=== PATIENT | female | born 1960 | race Caucasian/White ===

== ENCOUNTER 2017-03-28 13:25 | Emergency (ER) | payer MEDICAID ==
[~2017-03-28] VITALS: Ht 165.1 cm; Wt 69.9 kg
[~2017-03-28 13:25] MED LIST: ASP325TEC PO; CARI250T PO; CEFU500T5 PO; CPR500T; CPR500T PO; CRS350T PO; DIAZ10TA; DIAZ10TA3; DIAZ10TA3 PO; HYDR-757 PO; HYDR1CAP PO; HYDR1CAP2; HYDR1CAP2 PO; NAPR-243 PO; ONDN4T PO; OXYC-12 PO; SULF1TAB35 PO; TRM50T; TRM50T PO
[2017-03-28] MEDS ORDERED: ONDANSETRON 4 MG/2 ML (SDV) Z0FRAN IVP ONE (15:30)
--- NOTE | 2017-03-28 15:30 | ED Integumentary General ---
General Chief Complaint: Skin/Wound Problems Stated Complaint: SPIDER BITE RT BUTTOCKS Nursing Triage Note: Pt has wound to R buttock that she thinks may be a spider bite. Pt states she first noticed wound on Saturday (03/23). Pt also c/o nausea that started yesterday. Source: patient, family (son) Exam Limitations: no limitations History of Present Illness Time seen by provider: 15:28 Initial Comments Patient presents to ER with chief complaint of a wound on the back of her right leg just below her buttock. She says been there since Saturday or Saturday which is approximately 5-6 days. She is having some subjective fevers, chills, nausea and a bit of pain from the site. She has not sought help yet for this nor she been on antibiotic last 4-6 weeks. She does not have a history of hidradenitis separative up. She denies laying on that side for a prolonged period of time. She is ambulatory. She's never had a wound here before. Patient is in a pain contract with her primary care physician for hydrocodone for her chronic back pain. She denies any other controlled substance use. Allergies and Home Medications Allergies Coded Allergies: propoxyphene (Unverified Allergy, Mild, 11/17/09) adhesive (Unverified Allergy, Unknown, RASH, 03/28/17) Iodinated Contrast- Oral and IV Dye (Verified Adverse Reaction, Intermediate, NAUSEA, 05/16/13) SEVERE VOMITTING Home Medications Alprazolam 1 Mg Tablet, (Reported) Aspirin 325 Mg Tabec, 325 MG PO DAILY, (Reported) Citalopram Hydrobromide 10 Mg Tablet, (Reported) Fluticasone/Salmeterol 1 Each Blst.w.dev, (Reported) Hydrocodone/Acetaminophen 1 Each Tablet, (Reported) Lisinopril 20 Mg Tablet, (Reported) Omeprazole 20 Mg Capsule., (Reported) Ondansetron 4 Mg Tab.rapdis, 4 MG PO Q6H PRN for NAUSEA/VOMITING-1ST LINE, #20 Ref 0 Prescribed by: FABIAN SNIDER on 03/28/17 1622 Oxycodone Hcl/Acetaminophen 1 Each Tablet, 1 EACH PO Q4-6H PRN, #50 Ref 0 ( Reported) Ranitidine HCl 150 Mg Tablet, (Reported) Tiotropium [place] 1 Inh Aerp, (Reported) Constitutional: No chills, No diaphoresis, No fever, malaise EENTM: No ear discharge, No ear pain Respiratory: No cough, No short of breath Cardiovascular: No chest pain, No syncope, No vascular heart diseas Gastrointestinal: No constipation, No diarrhea, No nausea Genitourinary: No discharge, No dysuria : No Musculoskeletal: back pain (Chronic), No joint pain, No joint swelling Skin: see HPI Psychiatric/Neurological: Denies Headache, Denies Numbness, Denies Paresthesia Past Ioswszt-Slrlyw-Qgibym Hx Patient Social History Recent Foreign Travel: No Contact w/Someone Who Travel: No Recent Infectious Disease Expo: No Immunizations Up To Date Tetanus Booster (TDap): Unknown Date of Pneumonia Vaccine: Jul 22, 2008 Seasonal Allergies Seasonal Allergies: Yes ("SINUS PROBLEMS") Respiratory Respiratory Disorders: COPD Reproductive System Hx Reproductive Disorders: No Sexually Transmitted Disease: No HIV/AIDS: No TRAINER History: 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 Genitourinary Genitourinary Disorders: Kidney Infection, Kidney Stones Gastrointestinal Gastrointestinal Disorders: Gastroesophageal Reflux, Ulcer Musculoskeletal Musculoskeletal Disorders: Arthritis HEENT HEENT Disorders: Cataract Loss of Vision: Denies Hearing Impairment: Denies Psychosocial Behavioral Health Disorders: Sleep Difficulties, Anxiety, Depression Blood Transfusions Adverse Reaction to a Blood Tr: No Family Medical History Significant Family History: No Pertinent Family Hx Family Medial History: Cancer 03 MOTHER (SPINAL AND KIDNEY) Cataract 03 MOTHER Congestive heart failure 03 FATHER Family history: Gastrointestinal disease 09 BROTHER Family history: Hypertension 03 FATHER 03 MOTHER 09 BROTHER Myocardial infarction 03 FATHER 09 BROTHER Parkinson's disease 03 MOTHER Stroke 03 MOTHER 09 BROTHER (TIA) 09 SISTER (TIA) Physical Exam Vital Signs Vital Sign - Last 12Hours 03/28/17 13:55 Temp 98.7 Pulse 89 Resp 18 B/P (MAP) 96/59 Pulse Ox 96 O2 Delivery Room Air Capillary Refill : Less Than 3 Seconds General Appearance: moderate distress, thin Cardiovascular: normal peripheral pulses, regular rate, rhythm, no edema Respiratory: lungs clear, normal breath sounds Back: normal inspection, no vertebral tenderness Extremities: non-tender, no pedal edema, normal capillary refill Neurologic/Psychiatric: alert, oriented x 3 Skin: normal color, warm/dry, other (2.5 cm diameter round eschar covering a mildly reddened base without any significant induration beyond the borders of the eschar over the issue tuberosity right side.) Lymphatic: no adenopathy Progress/Results/Core Measures Results/Orders Lab Results Laboratory Tests Test 03/28/17 14:33 Range/Units White Blood Count 8.5 4.3-11.0 10^3/uL Red Blood Count 3.68 L 4.35-5.85 10^6/uL Hemoglobin 12.1 11.5-16.0 G/DL Hematocrit 34 L 35-52 % Mean Corpuscular Volume 93 80-99 FL Mean Corpuscular Hemoglobin 33 25-34 PG Mean Corpuscular Hemoglobin Concent 35 32-36 G/DL Red Cell Distribution Width 11.9 10.0-14.5 % Platelet Count 238 130-400 10^3/uL Mean Platelet Volume 11.0 H 7.4-10.4 FL Neutrophils (%) (Auto) 66 42-75 % Lymphocytes (%) (Auto) 26 12-44 % Monocytes (%) (Auto) 7 0-12 % Eosinophils (%) (Auto) 1 0-10 % Basophils (%) (Auto) 0 0-10 % Neutrophils # (Auto) 5.6 1.8-7.8 X 10^3 Lymphocytes # (Auto) 2.2 1.0-4.0 X 10^3 Monocytes # (Auto) 0.6 0.0-1.0 X 10^3 Eosinophils # (Auto) 0.1 0.0-0.3 10^3/uL Basophils # (Auto) 0.0 0.0-0.1 10^3/uL Sodium Level 137 135-145 MMOL/L Potassium Level 3.6 3.6-5.0 MMOL/L Chloride Level 103 98-107 MMOL/L Carbon Dioxide Level 23 21-32 MMOL/L Anion Gap 11 5-14 MMOL/L Blood Urea Nitrogen 15 7-18 MG/DL Creatinine 1.08 0.60-1.30 MG/DL Estimat Glomerular Filtration Rate 53 BUN/Creatinine Ratio 14 Glucose Level 109 H 70-105 MG/DL Calcium Level 9.0 8.5-10.1 MG/DL Total Bilirubin 1.7 H 0.1-1.0 MG/DL Aspartate Amino Transf (AST/SGOT) 32 5-34 U/L Alanine Aminotransferase (ALT/SGPT) 17 0-55 U/L Alkaline Phosphatase 98 40-136 U/L Total Protein 6.6 6.4-8.2 GM/DL Albumin 4.0 3.2-4.5 GM/DL My Orders Orders - FABIAN SNIDER Cbc With Automated Diff (03/28/17 15:27) Comprehensive Metabolic Panel (03/28/17 15:27) Ondansetron Injection (Zofran Injectio (03/28/17 15:30) Ondansetron Oral Dissolve Tab (Zofran (03/28/17 16:15) Rx-Ondansetron Po (Rx-Zofran Po) (03/28/17 16:27) Rx-Ondansetron Po (Rx-Zofran Po) (03/28/17 16:22) Medications Given in ED Current Medications Medications Dose Ordered Sig/Justino Route Start Time Stop Time Status Last Admin Dose Admin Ondansetron HCl 4 mg ONCE ONCE PO 03/28/17 16:15 03/28/17 16:16 DC 03/28/17 16:09 4 MG Vital Signs/I&O Vital Sign - Last 12Hours 03/28/17 13:55 Temp 98.7 Pulse 89 Resp 18 B/P (MAP) 96/59 Pulse Ox 96 O2 Delivery Room Air Blood Pressure Mean: 71 Consults Consults : Consulting Physician: JENNIFER KINCAID MD Consults Notes Discussed the case and he agrees with this can be [facility] outpatient and would be happy to see it in the clinic afternoon Saturday. He asked that we call the clinic get this scheduled for her. Departure Impression Impression: Primary Impression: Pressure ulcer Qualified Codes: L89.310 - Pressure ulcer of right buttock, unstageable Disposition: 01 HOME, SELF-CARE Condition: Stable Departure-Patient Inst. Decision time for Depature: 16:19 Referrals: KIRILL MUSE DO (PCP/Family) Primary Care Physician Patient Instructions: Pressure Sores (DC) Add. Discharge Instructions: Keep the wound clean and use soap and water. If you have fever or intractable nausea and diarrhea you should return to the ER otherwise pick pack worker the Zofran and take one tablet under the tongue every 6 hours as needed to control your nausea. Plan on following up with the general surgeon, Dr. Kincaid on April 01 at 4 PM. If you need to reschedule for have questions his clinic number is [phone]. All discharge instructions reviewed with patient and/or family. Voiced understanding. Scripts Ondansetron (Zofran Odt) 4 Mg Tab.rapdis 4 MG PO Q6H Y for NAUSEA/VOMITING-1ST LINE, #20 TAB 0 Refills Prov: FABIAN SNIDER 03/28/17 Copy Copies To 1: JENNIFER KINCAID MD, TITUS J Mar 28, 2017 15:30
[2017-03-28 15:39] LABS: BASOPHILS % (AUTO) 0 % (0-10); EOSINOPHILS # (AUTO) 0.1 10^3/uL (0.0-0.3); EOSINOPHILS % (AUTO) 1 % (0-10); LYMPHOCYTES # (AUTO) 2.2 X 10^3 (1.0-4.0); LYMPHOCYTES % (AUTO) 26 % (12-44); MEAN CORPUSCULAR HEMOGLOBIN 33 PG (25-34); MEAN CORPUSCULAR HGB CONC 35 G/DL (32-36); MEAN CORPUSCULAR VOLUME 93 FL (80-99); MONOCYTES # (AUTO) 0.6 X 10^3 (0.0-1.0); MONOCYTES % (AUTO) 7 % (0-12); NEUTROPHILS # (AUTO) 5.6 X 10^3 (1.8-7.8); NEUTROPHILS % (AUTO) 66 % (42-75); PLATELET COUNT 238 10^3/uL (130-400); RED BLOOD COUNT 3.68 10^6/uL (4.35-5.85); RED CELL DISTRIBUTION WIDTH 11.9 % (10.0-14.5); WHITE BLOOD COUNT 8.5 10^3/uL (4.3-11.0)
[2017-03-28 15:51] LABS: BILIRUBIN,TOTAL 1.7 MG/DL (0.1-1.0); CREATININE SERUM 1.08 MG/DL (0.60-1.30); POTASSIUM 3.6 MMOL/L (3.6-5.0); TOTAL PROTEIN 6.6 GM/DL (6.4-8.2)
[2017-03-28] MEDS ORDERED: RANI150T11 (16:14)
[2017-03-28] MEDS ORDERED: LISI-552 (16:14)
[2017-03-28] MEDS ORDERED: FLUT1DIS27 (16:14)
[2017-03-28] MEDS ORDERED: ALPR1TAB7 (16:14)
[2017-03-28] MEDS ORDERED: TIOT18CA2 (16:14)
[2017-03-28] MEDS ORDERED: HYDR-3820 (16:14)
[2017-03-28] MEDS ORDERED: OMEP20CA12 (16:14)
[2017-03-28] MEDS ORDERED: CITA10TA7 (16:14)
[2017-03-28] MEDS ORDERED: ONDANSETRON 4 MG (ZOFRAN) ORAL DISSOLVE TAB PO ONE (16:15)
[2017-03-28] MEDS ORDERED: RX-ONDANSETRON 4 MG ODT (ZOFRAN) PPK #4 ONE (16:22)
[2017-03-28] MEDS ORDERED: ONDA4TAB8 PO (16:22)
[2017-03-28 16:25] VITALS: BP 135/71
[2017-03-28] MEDS ORDERED: RX-ONDANSETRON 4 MG ODT (ZOFRAN) PPK #4 PO STA (16:27)
== END 2017-03-28 16:25 | disposition home or self-care (01) ==
LOC: EDUNIT# 13:25 → ER 13:28
DX: L89.310 Pressure ulcer of right buttock, unstageable (principal); J44.9 Chronic obstructive pulmonary disease, unspecified; K21.9 Gastro-esophageal reflux disease without esophagitis; M19.90 Unspecified osteoarthritis, unspecified site; F41.9 Anxiety disorder, unspecified; F32.9 Major depressive disorder, single episode, unspecified; Z82.49 Family history of ischemic heart disease and other diseases of the circulatory system; Z85.528 Personal history of other malignant neoplasm of kidney; Z79.82 Long term (current) use of aspirin; Z90.710 Acquired absence of both cervix and uterus; Z87.442 Personal history of urinary calculi; Z87.448 Personal history of other diseases of urinary system
CPT/HCPCS: 36415; 80053; 85025; 99282

== ENCOUNTER → 2017-04-05 | Outpatient (CLI) | payer MEDICARE, MEDICAID ==
[~2017-04-05] MED LIST changes: +ALPR1TAB7; +CITA10TA7; +FLUT1DIS27; +HYDR-3820; +LISI-552; +OMEP20CA12; +ONDA4TAB8 PO; +RANI150T11; +TIOT18CA2
== END ==
LOC: WOUNDCARE 08:07
PROVIDERS: ATTEND Surgery
DX: T63.331A Toxic effect of venom of brown recluse spider, accidental (unintentional), initial encounter (principal); L98.492 Non-pressure chronic ulcer of skin of other sites with fat layer exposed; T65.222A Toxic effect of tobacco cigarettes, intentional self-harm, initial encounter
CPT/HCPCS: 99213

== ENCOUNTER → 2017-04-25 | Outpatient (CLI) | payer MEDICARE, MEDICAID | LOC: WOUNDCARE 13:25 | PROVIDERS: ATTEND Surgery | DX: L98.492 Non-pressure chronic ulcer of skin of other sites with fat layer exposed (principal); S51.801A Unspecified open wound of right forearm, initial encounter; T63.331S Toxic effect of venom of brown recluse spider, accidental (unintentional), sequela; L98.491 Non-pressure chronic ulcer of skin of other sites limited to breakdown of skin; T65.222A Toxic effect of tobacco cigarettes, intentional self-harm, initial encounter; B18.9 Chronic viral hepatitis, unspecified | CPT/HCPCS: 11042; 97597 ==

== ENCOUNTER 2019-02-17 10:02 | Emergency (ER) | payer MEDICARE, MEDICAID ==
[~2019-02-17] VITALS: Ht 165.1 cm; Wt 69.9 kg
--- OUTSIDE RECORDS SUMMARY | 2019-02-17 10:09 | XMS REPORT | Continuity of Care Document ---
Author Author [facility] Organization [facility] Address Unknown Phone Unavailable Care Team Providers Care Senior Telecommunications Technician Name Role Phone NO, LOCAL PHYSICIAN PP Unavailable Insurance Providers Payer Name Policy Number Subscriber Name Relationship [facility] [id number] Linh Holt 01 Self / Same As Patient Advance Directives Directive Response Recorded Date Advance Directives N 04/10/13 10:06pm Health Care Power of Reptile Keeper N 04/10/13 10:06pm Organ Donor N 04/10/13 10:06pm Problems No Known Problems or Medical conditions. Family History History Response Recorded Date/Time Hx Family Cancer Y KIDNEY- MOTHER 04/05/10 8:00pm Hx Family Cardiac Disorders Y 04/05/10 8:00pm Hx Family Stroke Y MOTHER 04/05/10 8:00pm Hx Family Hypertension Y PARENTS 04/05/10 8:00pm Hx Family Myocardial Infarction Y FATAL- FATHER 04/05/10 8:00pm Social History History Response Recorded Date/Time Alcohol Use Denies Use 04/10/13 10:06pm Recreational Drug Use N 04/10/13 10:06pm Allergies, Adverse Reactions, Alerts Allergen Type Severity Reaction Last Updated Oxycodone Allergy Mild hives, nausea 01/27/10 Propoxyphene Allergy Mild 11/17/09 Medications Medication Dose Units Route Sig Qty Days Tramadol HCl (Ultram) 50 Mg PO Q4-6HOURS PRN 20 Naproxen (Naprosyn) 1 Each PO TID PRN 20 Acetaminophen/Hydrocodone Bitart (Hydrocodone-Apap 5-500 Cap) 1 Each PO Q6HR PRN Carisoprodol (Soma) 1 Tab PO HS Diazepam 10 Mg PO TID-QID PRN Naproxen (Naprosyn) 1 Each PO TID PRN 20 Trimethoprim/Sulfamethoxazole (Bactrim Ds Tablet) 1 Each PO BID 30 Tramadol HCl (Ultram) 50 Mg PO Q6H PRN 20 Ciprofloxacin (Cipro) 1 Tab PO BID 7 Response Recorded Date/Time Status not known Unknown Results Test Date Result Interp. Ref. Range Acetaminophen Level April 29, 2009 8:17am < 10 UG/ML L 10.0-30.0 Acetaminophen Screen April 29, 2009 9:05am POSITIVE H - Activated Partial Thromboplast Time April 29, 2009 8:17am 36 SEC H 24-35 Alanine Aminotransferase (ALT/SGPT) April 05, 2010 5:10pm 31 U/L N 30-65 Albumin April 05, 2010 5:10pm 3.5 G/DL N 3.4-5.0 Alkaline Phosphatase April 05, 2010 5:10pm 138 U/L H 50-136 Amphetamines Screen February 02, 2006 2:05am Negative - Amylase Level April 05, 2010 5:10pm 41 U/L N 25-115 Anti-Neutrophil Cytoplasmic Ab November 16, 2008 11:04am <1:20 - Aspartate Amino Transf (AST/SGOT) April 05, 2010 5:10pm 13 U/L L 15-37 BUN/Creatinine Ratio April 05, 2010 5:10pm 13 - Band Neutrophils April 30, 2009 6:29am 0 % - Basophils # (Auto) April 05, 2010 5:10pm 0.0 10^3/uL N 0.0-0.1 Basophils % (Manual) April 30, 2009 6:29am 0 % - Basophils (%) (Auto) April 05, 2010 5:10pm 0 % N 0-10 Bleeding Time November 17, 2009 2:15pm 6.0 MIN N 2.5-9.5 Blood Urea Nitrogen April 05, 2010 5:10pm 8 MG/DL N 7-18 Calcium Level April 05, 2010 5:10pm 8.4 MG/DL L 8.5-10.1 Carbon Dioxide Level April 05, 2010 5:10pm 30 MMOL/L N 21-32 Chloride Level April 05, 2010 5:10pm 103 MMOL/L N 101-110 Cocaine Screen February 02, 2006 2:05am Negative - Creatinine April 05, 2010 5:10pm 0.6 MG/DL N 0.6-1.3 Eosinophils # (Auto) April 05, 2010 5:10pm 0.1 10^3/uL N 0.0-0.3 Eosinophils % (Manual) April 30, 2009 6:29am 3 % - Eosinophils (%) (Auto) April 05, 2010 5:10pm 1 % N 0-10 Erythrocyte Sedimentation Rate November 17, 2008 2:45pm 21 MM/HR H 0-20 Gastric Fluid Occult Blood October 12, 2005 3:15pm Neg - Glucose Level April 05, 2010 5:10pm 93 MG/DL N 70-126 Hematocrit April 05, 2010 5:10pm 36 % N 35-52 Hemoglobin April 05, 2010 5:10pm 12.8 G/DL N 11.5-16.0 Lipase November 17, 2008 6:46am 191 U/L N 114-286 Lymphocytes # (Auto) April 05, 2010 5:10pm 3.2 X 10^3 N 1.0-4.0 Lymphocytes % (Manual) April 30, 2009 6:29am 41 % - Lymphocytes (%) (Auto) April 05, 2010 5:10pm 24 % N 12-44 Magnesium Level December 03, 2009 10:12am 2.0 MG/DL N 1.8-2.4 Marijuana (THC) Screen February 02, 2006 2:05am Negative - Mean Corpuscular Hemoglobin April 05, 2010 5:10pm 35 PG H 25-34 Mean Corpuscular Hemoglobin Concent April 05, 2010 5:10pm 36 G/DL N 32-36 Mean Corpuscular Volume April 05, 2010 5:10pm 98 FL N 80-99 Mean Platelet Volume April 05, 2010 5:10pm 9.5 FL N 7.4-10.4 Monocytes # (Auto) April 05, 2010 5:10pm 0.6 X 10^3 N 0.0-1.0 Monocytes % (Manual) April 30, 2009 6:29am 11 % - Monocytes (%) (Auto) April 05, 2010 5:10pm 4 % N 0-12 Myoglobin April 05, 2010 5:10pm 22 UG/L N 10-92 Neutrophils # (Auto) April 05, 2010 5:10pm 9.3 X 10^3 H 1.8-7.8 Neutrophils % (Manual) April 30, 2009 6:29am 38 % - Neutrophils (%) (Auto) April 05, 2010 5:10pm 70 % N 42-75 Opiates Screen February 02, 2006 2:05am Positive - Platelet Count April 05, 2010 5:10pm 223 10^3/uL N 130-400 Potassium Level April 05, 2010 5:10pm 3.5 MMOL/L L 3.6-5.0 Prothromb Time International Ratio December 19, 2009 6:40am 1.1 N 0.8-1.4 Prothrombin Time December 19, 2009 6:40am 14.4 SEC N 12.2-14.7 Reactive Lymphocytes April 30, 2009 6:29am 7 % - Red Blood Count April 05, 2010 5:10pm 3.66 10^6/uL L 4.35-5.85 Red Cell Distribution Width April 05, 2010 5:10pm 13.7 % N 10.0-14.5 Saccharomyces cerevisiae IgA Ab November 16, 2008 11:04am 31.8 H U - Saccharomyces cerevisiae IgG Ab November 16, 2008 11:04am 18.3 U - Sodium Level April 05, 2010 5:10pm 138 MMOL/L N 135-145 Total Bilirubin April 05, 2010 5:10pm 0.3 MG/DL N 0.0-1.0 Total Protein April 05, 2010 5:10pm 6.9 G/DL N 6.4-8.2 Tricyclic Antidepressants Screen February 02, 2006 2:05am Negative - Troponin I April 05, 2010 11:24pm < 0.10 MG/ML 0.00-0.10 Ur Tricyclic Antidepressants Screen April 29, 2009 9:05am NEGATIVE - Urine Amphetamines Screen April 29, 2009 9:05am POSITIVE H - Urine Bacteria December 15, 2009 9:10am MODERATE H - Urine Barbiturates Screen April 29, 2009 9:05am NEGATIVE - Urine Benzodiazepines Screen April 29, 2009 9:05am POSITIVE H - Urine Bilirubin December 15, 2009 9:10am NEGATIVE - Urine Calcium Oxalate Crystals November 17, 2009 1:35pm RARE H - Urine Casts December 15, 2009 9:10am NONE - Urine Clarity December 15, 2009 9:10am SLIGHTLY CLOUDY - Urine Cocaine Screen April 29, 2009 9:05am NEGATIVE - Urine Color December 15, 2009 9:10am YELLOW - Urine Crystals December 15, 2009 9:10am NONE - Urine Culture Indicated December 15, 2009 9:10am YES - Urine Glucose (UA) December 15, 2009 9:10am NEGATIVE - Urine Ketones December 15, 2009 9:10am NEGATIVE - Urine Leukocyte Esterase December 15, 2009 9:10am 2+ H - Urine Methamphetamines Screen April 29, 2009 9:05am NEGATIVE - Urine Mucus December 15, 2009 9:10am NEGATIVE - Urine Nitrite December 15, 2009 9:10am NEGATIVE - Urine Opiates Screen April 29, 2009 9:05am POSITIVE H - Urine Phencyclidine Screen April 29, 2009 9:05am NEGATIVE - Urine Test October 09, 2008 12:48am NEGATIVE - Urine Protein December 15, 2009 9:10am NEGATIVE - Urine RBC December 15, 2009 9:10am NONE /HPF - Urine Specific [place] December 15, 2009 9:10am 1.005 L - Urine Squamous Epithelial Cells December 15, 2009 9:10am 10-25 H - Urine Urobilinogen December 15, 2009 9:10am NORMAL MG/DL - Urine WBC December 15, 2009 9:10am 10-25 /HPF H - Urine pH December 15, 2009 9:10am 7.0 - Vancomycin Level Trough December 04, 2009 1:12am 6.6 MCG/ML L 10-20 White Blood Count April 05, 2010 5:10pm 13.3 10^3/uL H 4.3-11.0 Barbiturate Screen February 02, 2006 2:05am Negative - Serum Alcohol April 29, 2009 8:17am < 5 MG/DL -5 Lab Scanned Report April 05, 2010 8:00pm Referred Lab Report [id number] - Estimat Glomerular Filtration Rate April 05, 2010 5:10pm > 60 - Blood Morphology Comment April 30, 2009 6:29am NORMAL - Urine Methadone Screen April 29, 2009 9:05am POSITIVE H - Creatine Kinase April 05, 2010 11:24pm 96 mg/dl N 21-140 Urine Cannabinoids Screen April 29, 2009 9:05am NEGATIVE - Cardiac Panel Pathologist Review April 05, 2010 5:10pm SEE CARDIAC PATH REV - Stool Occult Blood Immunoassay November 18, 2008 9:40am NEGATIVE - Urine RBC (Auto) December 15, 2009 9:10am NEGATIVE - Procedures Procedure Code Date COLONOSCOPY 45.23 11/18/08 TOTAL HIP REPLACEMENT 81.51 12/12/09 TOTAL HIP REPLACEMENT 81.51 11/29/09 VENOUS CATHETERIZATION NEC 38.93 12/04/09 Blood Culture 12/02/09 Ova and Parasites 11/18/08 MRSA Screen 12/11/09 Urine Culture 12/15/09 Gram Stain 10/22/07 Encounters Encounter Location Date/Time Departed Emergency Room [facility] 04/10/13 10:01pm Discharged Inpatient [facility] 04/05/10 8:00pm Pre-admitted Inpatient [facility] 11/22/09
--- OUTSIDE RECORDS SUMMARY | 2019-02-17 10:10 | XMS REPORT | Continuity of Care Document ---
Author Author [facility] Organization [facility] Address Unknown Phone Unavailable Care Team Providers Care Medical Records Coder Name Role Phone AVNI SALDIVAR MD PP Insurance Providers Payer Name Policy Number Subscriber Name Relationship Medicaid [place] [id number] Umesh Holt 01 Self / Same As Patient Advance Directives Directive Response Recorded Date Advance Directives N 05/16/13 3:02pm Health Care Power of Security Expert N 05/16/13 3:02pm Organ Donor N 05/16/13 3:02pm Problems No Known Problems or Medical conditions. Family History History Response Recorded Date/Time Hx Family Cancer Y KIDNEY METS TO SPINE- MOTHER 05/16/13 3:11pm Hx Family Cardiac Disorders Y 05/16/13 3:11pm Hx Family Stroke Y MOTHER 05/16/13 3:11pm Hx Family Hypertension Y PARENTS 05/16/13 3:11pm Hx Family Myocardial Infarction Y FATAL- FATHER 05/16/13 3:11pm Social History History Response Recorded Date/Time Alcohol Use Denies Use 05/16/13 3:05pm Recreational Drug Use N 05/16/13 3:05pm Recent Foreign Travel N 05/16/13 3:05pm Recent Infectious Disease Exposure N 05/16/13 3:05pm Hospitalization with Isolation Contact 05/18/13 4:07pm Allergies, Adverse Reactions, Alerts Allergen Type Severity Reaction Last Updated Iodinated Contrast Media - IV Dye Adverse Reaction Intermediate NAUSEA 05/16/13 propoxyphene Allergy Mild 11/17/09 Medications Medication Dose Units Route Sig Qty Days Ondansetron Hcl (Zofran Po) 4 Mg PO Q4H PRN Cefuroxime Axetil 1 Each PO BID Acetaminophen/Hydrocodone Bitart (Hydrocodone-Apap 5-500 Cap) 2 Tab PO Q3H PRN Tramadol HCl (Ultram) 50 Mg PO Q4-6HOURS PRN 20 Naproxen (Naprosyn) 1 Each PO TID PRN 20 Carisoprodol (Soma) 1 Tab PO HS Diazepam 10 Mg PO TID-QID PRN Naproxen (Naprosyn) 1 Each PO TID PRN 20 Trimethoprim/Sulfamethoxazole (Bactrim Ds Tablet) 1 Each PO BID 30 Tramadol HCl (Ultram) 50 Mg PO Q6H PRN 20 Ciprofloxacin (Cipro) 1 Tab PO BID 7 Immunizations Name Given Type Date of Pneumonia Vaccine 07/22/08 H influenza, split (incl. purified surface antigen) 05/18/13 A influenza, split (incl. purified surface antigen) 05/18/13 A Response Recorded Date/Time Status not known Unknown Results Test Date Result Interp. Ref. Range Acetaminophen Level April 29, 2009 8:17am < 10 UG/ML L 10.0-30.0 Acetaminophen Screen April 29, 2009 9:05am POSITIVE H - Activated Partial Thromboplast Time April 29, 2009 8:17am 36 SEC H 24-35 Alanine Aminotransferase (ALT/SGPT) May 17, 2013 5:22am 31 U/L N 30-65 Albumin May 17, 2013 5:22am 3.1 G/DL L 3.4-5.0 Alkaline Phosphatase May 17, 2013 5:22am 140 U/L H 50-136 Amphetamines Screen February 02, 2006 2:05am Negative - Amylase Level May 16, 2013 11:05am 40 U/L N 25-115 Anti-Neutrophil Cytoplasmic Ab November 16, 2008 11:04am <1:20 - Aspartate Amino Transf (AST/SGOT) May 17, 2013 5:22am 16 U/L N 15-37 BUN/Creatinine Ratio May 17, 2013 5:22am 17 - Band Neutrophils April 30, 2009 6:29am 0 % - Basophils # (Auto) May 16, 2013 11:05am 0.0 10^3/uL N 0.0-0.1 Basophils % (Manual) April 30, 2009 6:29am 0 % - Basophils (%) (Auto) May 16, 2013 11:05am 0 % N 0-10 Bleeding Time November 17, 2009 2:15pm 6.0 MIN N 2.5-9.5 Blood Urea Nitrogen May 17, 2013 5:22am 10 MG/DL N 7-18 C-Reactive Protein April 30, 2013 11:22am 1.9 MG/DL H 0.2-0.9 Calcium Level May 17, 2013 5:22am 8.7 MG/DL N 8.5-10.1 Carbon Dioxide Level May 17, 2013 5:22am 24 MMOL/L N 21-32 Chloride Level May 17, 2013 5:22am 107 MMOL/L N 101-110 Cocaine Screen February 02, 2006 2:05am Negative - Creatinine May 17, 2013 5:22am 0.6 MG/DL N 0.6-1.3 Eosinophils # (Auto) May 16, 2013 11:05am 0.0 10^3/uL N 0.0-0.3 Eosinophils % (Manual) April 30, 2009 6:29am 3 % - Eosinophils (%) (Auto) May 16, 2013 11:05am 0 % N 0-10 Erythrocyte Sedimentation Rate April 30, 2013 11:22am 34 MM/HR H 0-30 Gastric Fluid Occult Blood October 12, 2005 3:15pm Neg - Glucose Level May 17, 2013 5:22am 91 MG/DL N 74-106 Hematocrit May 17, 2013 5:22am 34 % L 35-52 Hemoglobin May 17, 2013 5:22am 12.1 G/DL N 11.5-16.0 Lipase May 16, 2013 11:05am 97 U/L N 73-393 Lymphocytes # (Auto) May 16, 2013 11:05am 2.5 X 10^3 N 1.0-4.0 Lymphocytes % (Manual) April 30, 2009 6:29am 41 % - Lymphocytes (%) (Auto) May 16, 2013 11:05am 27 % N 12-44 Magnesium Level May 16, 2013 11:05am 1.8 MG/DL N 1.8-2.4 Marijuana (THC) Screen February 02, 2006 2:05am Negative - Mean Corpuscular Hemoglobin May 17, 2013 5:22am 33 PG N 25-34 Mean Corpuscular Hemoglobin Concent May 17, 2013 5:22am 36 G/DL N 32-36 Mean Corpuscular Volume May 17, 2013 5:22am 92 FL N 80-99 Mean Platelet Volume May 17, 2013 5:22am 9.0 FL N 7.4-10.4 Monocytes # (Auto) May 16, 2013 11:05am 0.5 X 10^3 N 0.0-1.0 Monocytes % (Manual) April 30, 2009 6:29am 11 % - Monocytes (%) (Auto) May 16, 2013 11:05am 6 % N 0-12 Myoglobin April 05, 2010 5:10pm 22 UG/L N 10-92 Neutrophils # (Auto) May 16, 2013 11:05am 6.3 X 10^3 N 1.8-7.8 Neutrophils % (Manual) April 30, 2009 6:29am 38 % - Neutrophils (%) (Auto) May 16, 2013 11:05am 67 % N 42-75 Opiates Screen February 02, 2006 2:05am Positive - Platelet Count May 17, 2013 5:22am 255 10^3/uL N 130-400 Potassium Level May 17, 2013 5:22am 3.1 MMOL/L L 3.6-5.0 Prothromb Time International Ratio December 19, 2009 6:40am 1.1 N 0.8-1.4 Prothrombin Time December 19, 2009 6:40am 14.4 SEC N 12.2-14.7 Reactive Lymphocytes April 30, 2009 6:29am 7 % - Red Blood Count May 17, 2013 5:22am 3.71 10^6/uL L 4.35-5.85 Red Cell Distribution Width May 17, 2013 5:22am 12.1 % N 10.0-14.5 Saccharomyces cerevisiae IgA Ab November 16, 2008 11:04am 31.8 H U - Saccharomyces cerevisiae IgG Ab November 16, 2008 11:04am 18.3 U - Sodium Level May 17, 2013 5:22am 140 MMOL/L N 135-145 Total Bilirubin May 17, 2013 5:22am 0.6 MG/DL N 0.0-1.0 Total Protein May 17, 2013 5:22am 6.5 G/DL N 6.4-8.2 Tricyclic Antidepressants Screen February 02, 2006 2:05am Negative - Troponin I April 05, 2010 11:24pm < 0.10 MG/ML 0.00-0.10 Ur Tricyclic Antidepressants Screen April 29, 2009 9:05am NEGATIVE - Urine Amphetamines Screen April 29, 2009 9:05am POSITIVE H - Urine Bacteria May 16, 2013 12:00pm MODERATE /HPF H - Urine Barbiturates Screen April 29, 2009 9:05am NEGATIVE - Urine Benzodiazepines Screen April 29, 2009 9:05am POSITIVE H - Urine Bilirubin May 16, 2013 12:00pm NEGATIVE - Urine Calcium Oxalate Crystals November 17, 2009 1:35pm RARE H - Urine Casts May 16, 2013 12:00pm NONE /LPF - Urine Clarity May 16, 2013 12:00pm CLEAR - Urine Cocaine Screen April 29, 2009 9:05am NEGATIVE - Urine Color May 16, 2013 12:00pm YELLOW - Urine Crystals May 16, 2013 12:00pm NONE /LPF - Urine Culture Indicated May 16, 2013 12:00pm YES - Urine Glucose (UA) May 16, 2013 12:00pm NEGATIVE - Urine Ketones May 16, 2013 12:00pm NEGATIVE - Urine Leukocyte Esterase May 16, 2013 12:00pm 1+ H - Urine Methamphetamines Screen April 29, 2009 9:05am NEGATIVE - Urine Mucus May 16, 2013 12:00pm SMALL /LPF H - Urine Nitrite May 16, 2013 12:00pm POSITIVE H - Urine Opiates Screen April 29, 2009 9:05am POSITIVE H - Urine Phencyclidine Screen April 29, 2009 9:05am NEGATIVE - Urine Test October 09, 2008 12:48am NEGATIVE - Urine Protein May 16, 2013 12:00pm 2+ H - Urine RBC May 16, 2013 12:00pm NONE /HPF - Urine Specific [place] May 16, 2013 12:00pm 1.020 - Urine Squamous Epithelial Cells May 16, 2013 12:00pm 2-5 /HPF - Urine Urobilinogen May 16, 2013 12:00pm NORMAL MG/DL - Urine WBC May 16, 2013 12:00pm 5-10 /HPF H - Urine pH May 16, 2013 12:00pm 6 - Vancomycin Level Trough December 04, 2009 1:12am 6.6 MCG/ML L 10-20 White Blood Count May 17, 2013 5:22am 8.2 10^3/uL N 4.3-11.0 Barbiturate Screen February 02, 2006 2:05am Negative - Serum Alcohol April 29, 2009 8:17am < 5 MG/DL -5 Lab Scanned Report April 05, 2010 8:00pm Referred Lab Report [id number] - Estimat Glomerular Filtration Rate May 16, 2013 11:05am > 60 - Blood Morphology Comment April [...] 2008 9:40am NEGATIVE - Urine RBC (Auto) May 16, 2013 12:00pm 2+ H - Procedures Procedure Code Date COLONOSCOPY 45.23 11/18/08 TOTAL HIP REPLACEMENT 81.51 12/12/09 TOTAL HIP REPLACEMENT 81.51 11/29/09 VENOUS CATHETERIZATION NEC 38.93 12/04/09 Blood Culture 12/02/09 Ova and Parasites 11/18/08 MRSA Screen 12/11/09 Urine Culture 05/16/13 Gram Stain 10/22/07 Encounters Encounter Location Date/Time Pre-admitted Inpatient [facility] 05/18/13 9:10am Discharged Inpatient [facility] 05/16/13 2:25pm Departed Emergency Room [facility] 04/10/13 10:01pm
--- OUTSIDE RECORDS SUMMARY | 2019-02-17 10:10 | XMS REPORT | Continuity of Care Document ---
Author Organization Unknown Address Unknown Phone Unavailable Allergies Active Description Code Type Severity Reaction Onset Reported/Identified Relationship to Patient Clinical Status Yes propoxyphene [id number] Drug Allergy Mild N/A 11/17/2009 Yes Iodinated Contrast- Oral and IV Dye [id number] Drug Allergy Moderate NAUSEA 05/16/2013 Yes adhesive [id number] Drug Allergy Unknown RASH 03/28/2017 Medications There is no data. Problems Date Dx Coded Attending Type Code Diagnosis Diagnosed By 05/18/2013 ALEXA PRITCHARD MD Ot 008.8 VIRAL ENTERITIS NOS 05/18/2013 ALEXA PRITCHARD MD Ot 041.49 OTHER AND UNSPECIFIED ESCHERICHIA COLI [ 05/18/2013 ALEXA PRITCHARD MD Ot 305.1 TOBACCO USE DISORDER 05/18/2013 ALEXA PRITCHARD MD Ot 599.0 URIN TRACT INFECTION NOS 05/18/2013 ALEXA PRITCHARD MD Ot 719.45 JOINT PAIN-PELVIS 06/03/2013 AVNI SALDIVAR MD Ot 305.1 TOBACCO USE DISORDER 06/03/2013 AVNI SALDIVAR MD Ot 496 CHR AIRWAY OBSTRUCT NEC 06/03/2013 AVNI SALDIVAR MD Ot 996.41 MECHANICAL LOOSENING OF PROSTHETIC JOINT 06/03/2013 AVNI SALDIVAR MD Ot V43.64 HIP JOINT REPLACEMENT STATUS 06/04/2013 ROCIO URBAN MD Ot 959.6 HIP THIGH INJURY NOS 06/04/2013 ROCIO URBAN MD Ot 959.7 LOWER LEG INJURY NOS 06/04/2013 ROCIO URBAN MD Ot E000.8 OTHER EXTERNAL CAUSE STATUS 06/04/2013 ROCIO URBAN MD Ot E849.0 ACCIDENT IN HOME 06/04/2013 ROCIO URBAN MD Ot E884.4 FALL FROM BED 03/28/2017 AVNI SALDIVAR MD Ot V43.64 HIP JOINT REPLACEMENT STATUS 03/28/2017 AVNI SALDIVAR MD Ot V67.09 SURGERY FOLLOW-UP, OTHER SURGERY 03/28/2017 AVNI SALDIVAR MD Ot 996.41 MECHANICAL LOOSENING OF PROSTHETIC JOINT 03/28/2017 AVNI SALDIVAR MD Ot V43.64 HIP JOINT REPLACEMENT STATUS 03/28/2017 AVNI SALDIVAR MD Ot 791.9 ABN URINE FINDINGS NEC 03/28/2017 AVNI SALDIVAR MD Ot 996.41 MECHANICAL LOOSENING OF PROSTHETIC JOINT 03/28/2017 AVNI SALDIVAR MD Ot V72.63 PRE-PROCEDURAL LABORATORY EXAMINATION 03/28/2017 FABIAN SNIDER MD Ot F32.9 MAJOR DEPRESSIVE DISORDER, SINGLE EPISOD 03/28/2017 FABIAN SNIDER MD Ot F41.9 ANXIETY DISORDER, UNSPECIFIED 03/28/2017 FABIAN SNIDER MD Ot J44.9 CHRONIC OBSTRUCTIVE PULMONARY DISEASE, U 03/28/2017 FABIAN SNIDER MD Ot K21.9 GASTRO-ESOPHAGEAL REFLUX DISEASE WITHOUT 03/28/2017 FABIAN SNIDER MD Ot L89.310 PRESSURE ULCER OF RIGHT BUTTOCK, UNSTAGE 03/28/2017 FABIAN SNIDER MD Ot M19.90 UNSPECIFIED OSTEOARTHRITIS, UNSPECIFIED 03/28/2017 FABAIN SNIDER MD Ot Z79.82 LONG-TERM (CURRENT) USE OF ASPIRIN 03/28/2017 FABIAN SNIDER MD Ot Z82.49 FAMILY HX OF ISCHEM HEART DIS AND OTH DI 03/28/2017 FABIAN SNIDER MD Ot Z85.528 PERSONAL HISTORY OF OTHER MALIGNANT NEOP 03/28/2017 FABIAN SNIDER MD Ot Z87.442 PERSONAL HISTORY OF URINARY CALCULI 03/28/2017 FABIAN SNIDER MD Ot Z87.448 PERSONAL HISTORY OF OTHER DISEASES OF UR 03/28/2017 FABIAN SNIDER MD Ot Z90.710 ACQUIRED ABSENCE OF BOTH CERVIX AND UTER 04/01/2017 FABIAN SNIDER MD Ot Z04.3 ENCOUNTER FOR EXAM AND OBSERVATION FOLLO 04/01/2017 FABIAN SNIDER MD Ot F32.9 MAJOR DEPRESSIVE DISORDER, SINGLE EPISOD 04/01/2017 FABIAN SNIDER MD Ot F41.9 ANXIETY DISORDER, UNSPECIFIED 04/01/2017 FABIAN SNIDER MD Ot J44.9 CHRONIC OBSTRUCTIVE PULMONARY DISEASE, U 04/01/2017 FABIAN SNIEDR MD Ot K21.9 GASTRO-ESOPHAGEAL REFLUX DISEASE WITHOUT 04/01/2017 FABIAN SNIDER MD Ot L89.310 PRESSURE ULCER OF RIGHT BUTTOCK, UNSTAGE 04/01/2017 FABIAN SNIDER MD Ot M19.90 UNSPECIFIED OSTEOARTHRITIS, UNSPECIFIED 04/01/2017 FAIBAN SNIDER MD Ot 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 04/01/2017 FABIAN SNIDER MD Ot Z82.49 FAMILY HX OF ISCHEM HEART DIS AND OTH DI 04/01/2017 FABIAN SNIDER MD Ot Z85.528 PERSONAL HISTORY OF OTHER MALIGNANT NEOP 04/01/2017 FABIAN SNIDER MD Ot Z87.442 PERSONAL HISTORY OF URINARY CALCULI 04/01/2017 FABIAN SNIDER MD Ot Z87.448 PERSONAL HISTORY OF OTHER DISEASES OF UR 04/01/2017 FABIAN SNIDER MD Ot Z90.710 ACQUIRED ABSENCE OF BOTH CERVIX AND UTER 04/04/2017 REVEAL AVNI VELIZ Ot V43.64 HIP JOINT REPLACEMENT STATUS 04/04/2017 REVEAL AVNI VELIZ Ot V67.09 SURGERY FOLLOW-UP, OTHER SURGERY 04/04/2017 REVEAL AVNI VELIZ Ot 996.41 MECHANICAL LOOSENING OF PROSTHETIC JOINT 04/04/2017 REVEAL AVNI VELIZ Ot V43.64 HIP JOINT REPLACEMENT STATUS 04/04/2017 REVEAL AVNI VELIZ Ot 791.9 ABN URINE FINDINGS NEC 04/04/2017 REVEAL AVNI VELIZ Ot 996.41 MECHANICAL LOOSENING OF PROSTHETIC JOINT 04/04/2017 REVEAL AVNI VELIZ Ot V72.63 PRE-PROCEDURAL LABORATORY EXAMINATION 04/05/2017 REVEAL AVNI VELIZ Ot V43.64 HIP JOINT REPLACEMENT STATUS 04/05/2017 REVEAL AVNI VELIZ Ot V67.09 SURGERY FOLLOW-UP, OTHER SURGERY 04/05/2017 REVEAL AVNI VELIZ Ot 996.41 MECHANICAL LOOSENING OF PROSTHETIC JOINT 04/05/2017 REVEAL AVNI VELIZ Ot V43.64 HIP JOINT REPLACEMENT STATUS 04/05/2017 REVEAL AVNI VELIZ Ot 791.9 ABN URINE FINDINGS NEC 04/05/2017 REVEAL AVNI VELIZ Ot 996.41 MECHANICAL LOOSENING OF PROSTHETIC JOINT 04/05/2017 REVEAL AVNI VELIZ Ot V72.63 PRE-PROCEDURAL LABORATORY EXAMINATION 04/09/2017 YOMI HUGHES MD, Ot L98.492 NON-PRS CHRONIC ULCER OF SKIN OF SITES W 04/09/2017 YOMI HUGHES MD, Ot T63.331A TOXIC EFFECT OF VENOM OF BROWN RECLUSE S 04/09/2017 YOMI HUGHES MD, Ot T65.222A TOXIC EFFECT OF TOBACCO CIGARETTES, SELF 04/11/2017 YOMI HUGHES MD, Ot L98.492 NON-PRS CHRONIC ULCER OF SKIN OF SITES W 04/11/2017 YOMI HUGHES MD, Ot T63.331A TOXIC EFFECT OF VENOM OF BROWN RECLUSE S 04/11/2017 YOMI HUGHES MD, Ot T65.222A TOXIC EFFECT OF TOBACCO CIGARETTES, SELF 04/26/2017 YOMI HUGHES MD, Ot L98.492 NON-PRS CHRONIC ULCER OF SKIN OF SITES W 04/26/2017 YOMI HUGHES MD, Ot T63.331A TOXIC EFFECT OF VENOM OF BROWN RECLUSE S 04/26/2017 YOMI HUGHES MD, Ot T65.222A TOXIC EFFECT OF TOBACCO CIGARETTES, SELF 04/26/2017 YOMI HUGHES MD, Ot B18.9 CHRONIC VIRAL HEPATITIS, UNSPECIFIED 04/26/2017 YOMI HUGHES MD, Ot L98.491 NON-PRS CHRONIC ULCER SKIN/ SITES LIMITE 04/26/2017 YOMI HUGHES MD, Ot L98.492 NON-PRS CHRONIC ULCER OF SKIN OF SITES W 04/26/2017 YOMI HUGHES MD, Ot S51.801A UNSPECIFIED OPEN WOUND OF RIGHT FOREARM, 04/26/2017 YOMI HUGHES MD, Ot T63.331S TOXIC EFFECT OF VENOM OF BROWN RECLUSE S 04/26/2017 YOMI HUGHES MD, Ot T65.222A TOXIC EFFECT OF TOBACCO CIGARETTES, SELF 05/01/2017 YOMI HUGHES MD, Ot B18.9 CHRONIC VIRAL HEPATITIS, UNSPECIFIED 05/01/2017 YOMI HUGHES MD, Ot L98.491 NON-PRS CHRONIC ULCER SKIN/ SITES LIMITE 05/01/2017 YOMI HUGHES MD, Ot L98.492 NON-PRS CHRONIC ULCER OF SKIN OF SITES W 05/01/2017 YOMI HUGHES MD, Ot S51.801A UNSPECIFIED OPEN WOUND OF RIGHT FOREARM, 05/01/2017 YOMI HUGHES MD, Ot T63.331S TOXIC EFFECT OF VENOM OF BROWN RECLUSE S 05/01/2017 YOMI HUGHES MD Ot T65.222A TOXIC EFFECT OF TOBACCO CIGARETTES, SELF 05/10/2017 YOMI HUGHES MD, Ot L98.492 NON-PRS CHRONIC ULCER OF SKIN OF SITES W 05/10/2017 YOMI HUGHES MD, Ot T63.331A TOXIC EFFECT OF VENOM OF BROWN RECLUSE S 05/10/2017 YOMI HUGHES MD, Ot T65.222A TOXIC EFFECT OF TOBACCO CIGARETTES, SELF 06/04/2017 YOMI HUGHES MD, Ot B18.9 CHRONIC VIRAL HEPATITIS, UNSPECIFIED 06/04/2017 YOMI HUGHES MD, Ot L98.491 NON-PRS CHRONIC ULCER SKIN/ SITES LIMITE 06/04/2017 YOMI HUGHES MD, Ot L98.492 NON-PRS CHRONIC ULCER OF SKIN OF SITES W 06/04/2017 YOMI HUGHES MD, Ot S51.801A UNSPECIFIED OPEN WOUND OF RIGHT FOREARM, 06/04/2017 YOMI HUGHES MD, Ot T63.331S TOXIC EFFECT OF VENOM OF BROWN RECLUSE S 06/04/2017 YOMI HUGHES MD, Ot T65.222A TOXIC EFFECT OF TOBACCO CIGARETTES, SELF 06/21/2017 YOMI HUGHES MD, Ot B18.9 CHRONIC VIRAL HEPATITIS, UNSPECIFIED 06/21/2017 YOMI HUGHES MD, Ot L98.491 NON-PRS CHRONIC ULCER SKIN/ SITES LIMITE 06/21/2017 YOMI HUGHES MD, Ot L98.492 NON-PRS CHRONIC ULCER OF SKIN OF SITES W 06/21/2017 YOMI HUGHES MD, Ot S51.801A UNSPECIFIED OPEN WOUND OF RIGHT FOREARM, 06/21/2017 YOMI HUGHES MD, Ot T63.331S TOXIC EFFECT OF VENOM OF BROWN RECLUSE S 06/21/2017 YOMI HUGHES MD, Ot T65.222A TOXIC EFFECT OF TOBACCO CIGARETTES, SELF Procedures Code Description Performed By Performed On 00.71 MICHELLE OF HIP REPLACEMENT, ACETABULAR COM 06/01/2013 Results Test Result Range Complete blood count (CBC) with automated white blood cell (WBC) differential - 03/28/17 14:33 Blood leukocytes automated count (number/volume) 8.5 10*3/uL 4.3-11.0 Blood erythrocytes automated count (number/volume) 3.68 10*6/uL 4.35-5.85 Venous blood hemoglobin measurement (mass/volume) 12.1 g/dL 11.5-16.0 Blood hematocrit (volume fraction) 34 % 35-52 Automated erythrocyte mean corpuscular volume 93 [foz_us] 80-99 Automated erythrocyte mean corpuscular hemoglobin (mass per erythrocyte) 33 pg 25-34 Automated erythrocyte mean corpuscular hemoglobin concentration measurement (mass/volume) 35 g/dL 32-36 Automated erythrocyte distribution width ratio 11.9 % 10.0- 14.5 Automated blood platelet count (count/volume) 238 10*3/uL 130-400 Automated blood platelet mean volume measurement 11.0 [foz_us] 7.4-10.4 Automated blood neutrophils/100 leukocytes 66 % 42-75 Automated blood lymphocytes/100 leukocytes 26 % 12-44 Blood monocytes/100 leukocytes 7 % 0-12 Automated blood eosinophils/100 leukocytes 1 % 0-10 Automated blood basophils/100 leukocytes 0 % 0-10 Blood neutrophils automated count (number/volume) 5.6 10*3 1.8-7.8 Blood lymphocytes automated count (number/volume) 2.2 10*3 1.0-4.0 Blood monocytes automated count (number/volume) 0.6 10*3 0.0- 1.0 Automated eosinophil count 0.1 10*3/uL 0.0-0.3 Automated blood basophil count (count/volume) 0.0 10*3/uL 0.0-0.1 Comprehensive metabolic panel - 03/28/17 14:33 Serum or plasma sodium measurement (moles/volume) 137 mmol/L 135-145 Serum or plasma potassium measurement (moles/volume) 3.6 mmol/L 3.6-5.0 Serum or plasma chloride measurement (moles/volume) 103 mmol/L 98-107 Carbon dioxide 23 mmol/L 21-32 Serum or plasma anion gap determination (moles/volume) 11 mmol/L 5-14 Serum or plasma urea nitrogen measurement (mass/volume) 15 mg/dL 7-18 Serum or plasma creatinine measurement (mass/volume) 1.08 mg/dL 0.60-1.30 Serum or plasma urea nitrogen/creatinine mass ratio 14 NRG Serum or plasma creatinine measurement with calculation of estimated glomerular filtration rate 53 NRG Serum or plasma glucose measurement (mass/volume) 109 mg/dL 70-105 Serum or plasma calcium measurement (mass/volume) 9.0 mg/dL 8.5-10.1 Serum or plasma total bilirubin measurement (mass/volume) 1.7 mg/dL 0.1-1.0 Serum or plasma alkaline phosphatase measurement (enzymatic activity/volume) 98 U/L 40-136 Serum or plasma aspartate aminotransferase measurement (enzymatic activity/volume) 32 U/L 5-34 Serum or plasma alanine aminotransferase measurement (enzymatic activity/volume) 17 U/L 0-55 Serum or plasma protein measurement (mass/volume) 6.6 g/dL 6.4-8.2 Serum or plasma albumin measurement (mass/volume) 4.0 g/dL 3.2-4.5 Encounters ACCT No. Visit Date/Time Discharge Status Pt. Type Provider Facility Loc./Unit Complaint [id number] 05/02/2017 12:47:00 05/02/2017 23:59:59 CLS Preadmit MULUGETA MERAZ APRN [facility] [address] WOUNDCARE [id number] 04/25/2017 13:25:00 04/25/2017 23:59:59 CLS Outpatient YOMI HUGHES MD [facility] [address] WOUNDCARE [id number] 04/05/2017 08:07:00 04/05/2017 23:59:59 CLS Outpatient YOMI HUGHES MD [facility] [address] [id number] 03/28/2017 13:28:00 03/28/2017 16:25:00 DIS Emergency FABIAN SNIDER MD [facility] [address] ER SPIDER BITE RT BUTTOCKS [id number] 09/16/2013 14:02:00 09/16/2013 23:59:59 CLS Outpatient [id number] 08/05/2013 15:43:00 08/05/2013 23:59:59 CLS Outpatient [id number] 06/04/2013 14:35:00 06/04/2013 18:06:00 DIS Emergency ROCIO URBAN MD [facility] [address] ER FALL/RIGHT HIP PAIN [id number] 06/01/2013 06:01:00 06/03/2013 10:10:00 DIS Inpatient AVNI SALDIVAR MD [facility] [address] SURGICAL LOOSE COMPONENT RIGHT HIP [id number] 05/26/2013 09:55:00 05/26/2013 23:59:59 CLS Outpatient REVEAL AVNI VELIZ [facility] [address] PREOP LOOSE COMPONENT RIGHT HIP [id number] 05/16/2013 14:25:00 05/18/2013 15:30:00 DIS Inpatient FRANCHESKA VELIZ, ALEXA Turner [facility] [address] 4TH UTI, VOMITING [id number] 05/12/2013 12:25:00 05/12/2013 23:59:59 CLS Outpatient REVEAL AVNI VELIZ [facility] [address] RAD ASEPTIC LOOSENING OF PROSTHETIC JOINT [id number] 04/30/2013 10:50:00 04/30/2013 23:59:59 CLS Outpatient REVEAL AVIN VELIZ [facility] [address] LAB HX OF ASTER HIP REPLACEMENT [id number] 04/29/2013 15:38:00 04/29/2013 23:59:59 CLS Outpatient [id number] 04/10/2013 22:01:00 04/10/2013 23:45:00 DIS Emergency [id number] 03/28/2017 16:15:00 Document Registration
[2019-02-17] MEDS ORDERED: NS IV 1000 ML 1,000 ML ONE (10:15)
[2019-02-17] MEDS ORDERED: NS IV 1000 ML 1,000 ML IV ONE (10:25)
[2019-02-17] MEDS ORDERED: FAMOTIDINE 20MG/2ML IV (PEPCID) IV STA (10:32)
[2019-02-17] MEDS ORDERED: LIDOCAINE 2% VISCOUS 15 ML UDC PO ONE (10:45)
[2019-02-17] MEDS ORDERED: ANTACID SUSP 30 ML UDC (MYLANTA) PO ONE (10:45)
--- NOTE | 2019-02-17 11:10 | ED Syncope ---
General Stated Complaint: FALL Source of Information: Patient Exam Limitations: No Limitations History of Present Illness Date Seen by Provider: Feb 17, 2019 Time Seen by Provider: 10:05 Initial Comments Here with report of syncopal episode this morning. She apparently was walking across the street when she passed out as she was stepping up on a curb. This was witnessed by a neighbor. She complains of some mild neck pain. She is unsure why she passed out but states that she has not been eating or drinking well. She does have a cough. Complains of epigastric abdominal pain that radiates up to her chest. EMS unable to start IV due to poor veins. Further questioning later, patient reports that she's had some episodes of the stomach discomfort that radiates up into her chest after stressful events. She had that yesterday after an argument with one of her signs and again today for the same reason that's why she was walking across history because she was walking away from him when the episode occurred. Timing/Prior Episodes: No Prior History Symptoms Prior to Episode: Lightheadedness Precipitating Factors: Activity Loss of Consciousness: Brief (Seconds) Current Symptoms: Chest Pain, Headache, Lightheadedness; No Shallow/Rapid Breathing, No Weak/Absent Pulse; Weakness Allergies and Home Medications Allergies Coded Allergies: propoxyphene (Unverified Allergy, Mild, 11/17/09) adhesive (Unverified Allergy, Unknown, RASH, 03/28/17) Iodinated Contrast- Oral and IV Dye (Verified Adverse Reaction, Intermediate, NAUSEA, 05/16/13) SEVERE VOMITTING Home Medications Aspirin 325 Mg Tabec, 325 MG PO DAILY, (Reported) Ondansetron 4 Mg Tab.rapdis, 4 MG PO Q6H PRN for NAUSEA/VOMITING-1ST LINE Prescribed by: FABIAN SNIDER on 03/28/17 1622 Oxycodone Hcl/Acetaminophen 1 Each Tablet, 1 EACH PO Q4-6H PRN, (Reported) Patient Home Medication List Home Medication List Reviewed: Yes Review of Systems Constitutional: see HPI; No chills, No fever EENTM: no symptoms reported Respiratory: No cough, No short of breath Cardiovascular: chest pain; No palpitations; syncope Gastrointestinal: abdominal pain; No nausea, No vomiting Genitourinary: no symptoms reported Musculoskeletal: muscle pain, neck pain Skin: no symptoms reported Psychiatric/Neurological: See HPI, Headache; Denies Numbness, Denies Tingling All Other Systems Reviewed Negative Unless Noted: Yes Past Nlaperg-Wkthpr-Bntinh Hx Past Med/Social Hx: Reviewed Nursing Past Med/Soc Hx Patient Social History Alcohol Use: Denies Use Recreational Drug Use: No Smoking Status: Current Everyday Smoker Type Used: Cigarettes Recent Hopitalizations: Yes (PNEUMONIA, KIDNEY INFECTIONS, SURGERIES) Immunizations Up To Date Tetanus Booster (TDap): Unknown Date of Pneumonia Vaccine: Jul 22, 2008 Seasonal Allergies Seasonal Allergies: Yes ("SINUS PROBLEMS") Past Medical History Surgeries: Yes (HYST,APPY,SHWETHA, COCCYX BONE, R HIP) Appendectomy, Gallbladder, 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, Orthopedic Respiratory: Yes COPD Cardiac: Yes (WPW) Neurological: No Reproductive Disorders: No STACKER History: 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 Sexually Transmitted Disease: No HIV/AIDS: No Kidney Infection, Kidney Stones Gastrointestinal: Yes Gastroesophageal Reflux, Ulcer Musculoskeletal: Yes Arthritis Endocrine: No Cataract Loss of Vision: Denies Hearing Impairment: Denies Cancer: No Psychosocial: No Sleep Difficulties, Anxiety, Depression Integumentary: No (BLISTERS FROM RECENT TAPE) Blood Disorders: No Adverse Reaction/Blood Tranf: No Family Medical History Reviewed Nursing Family Hx Cancer 03 MOTHER (SPINAL AND KIDNEY) Cataract 03 MOTHER Congestive heart failure 03 FATHER Family history: Gastrointestinal disease 09 BROTHER Family history: Hypertension 03 FATHER 03 MOTHER 09 BROTHER Myocardial infarction 03 FATHER 09 BROTHER Parkinson's disease 03 MOTHER Stroke 03 MOTHER 09 BROTHER (TIA) 09 SISTER (TIA) No Pertinent Family Hx Physical Exam Vital Signs Vital Signs - First Documented 02/17/19 10:04 Temp 96.7 Pulse 86 Resp 12 B/P (MAP) 94/81 (85) Capillary Refill : Height, Weight, BMI Height: 5'5.00" Weight: 154lbs. oz. 69.125615tf; BMI Method:Stated General Appearance: No Apparent Distress, WD/WN HEENT: PERRL/EOMI, Pharynx Normal Neck: Non Tender, Supple Cardiovascular: Regular Rate, Rhythm, No Murmur Respiratory: Lungs Clear, Normal Breath Sounds Gastrointestinal: Non Tender, Soft Back: Normal Inspection, No CVA Tenderness, No Vertebral Tenderness Neurologic/Psychiatric: Alert, Oriented x3 Cranial Nerves: Normal Speech, PERRL Motor/Sensory: No Motor Deficit, No Sensory Deficit Skin: Normal Color, Warm/Dry Progress/Results/Core Measures Results/Orders Lab Results Laboratory Tests Test 02/17/19 10:22 02/17/19 11:24 02/17/19 12:33 Range/Units Troponin I < 0.028 <0.028 NG/ML White Blood Count 8.7 4.3-11.0 10^3/uL Red Blood Count 4.06 L 4.35-5.85 10^6/uL Hemoglobin 13.1 11.5-16.0 G/DL Hematocrit 37 35-52 % Mean Corpuscular Volume 90 80-99 FL Mean Corpuscular Hemoglobin 32 25-34 PG Mean Corpuscular Hemoglobin Concent 36 32-36 G/DL Red Cell Distribution Width 13.1 10.0-14.5 % Platelet Count 162 130-400 10^3/uL Mean Platelet Volume 9.9 7.4-10.4 FL Neutrophils (%) (Auto) 44 42-75 % Lymphocytes (%) (Auto) 45 H 12-44 % Monocytes (%) (Auto) 9 0-12 % Eosinophils (%) (Auto) 2 0-10 % Basophils (%) (Auto) 1 0-10 % Neutrophils # (Auto) 3.8 1.8-7.8 X 10^3 Lymphocytes # (Auto) 3.9 1.0-4.0 X 10^3 Monocytes # (Auto) 0.8 0.0-1.0 X 10^3 Eosinophils # (Auto) 0.2 0.0-0.3 10^3/uL Basophils # (Auto) 0.1 0.0-0.1 10^3/uL Sodium Level 140 135-145 MMOL/L Potassium Level 3.9 3.6-5.0 MMOL/L Chloride Level 110 H 98-107 MMOL/L Carbon Dioxide Level 16 L 21-32 MMOL/L Anion Gap 14 5-14 MMOL/L Blood Urea Nitrogen 14 7-18 MG/DL Creatinine 0.98 0.60-1.30 MG/DL Estimat Glomerular Filtration Rate 59 BUN/Creatinine Ratio 14 Glucose Level 72 70-105 MG/DL Calcium Level 9.4 8.5-10.1 MG/DL Corrected Calcium 9.2 8.5-10.1 MG/DL Magnesium Level 2.4 1.8-2.4 MG/DL Total Bilirubin 0.7 0.1-1.0 MG/DL Aspartate Amino Transf (AST/SGOT) 25 5-34 U/L Alanine Aminotransferase (ALT/SGPT) 11 0-55 U/L Alkaline Phosphatase 128 40-136 U/L C-Reactive Protein High Sensitivity 0.28 0.00-0.50 MG/DL Total Protein 7.4 6.4-8.2 GM/DL Albumin 4.3 3.2-4.5 GM/DL Urine Color YELLOW Urine Clarity CLEAR Urine pH 5 5-9 Urine Specific Sibley 1.015 L 1.016-1.022 Urine Protein NEGATIVE NEGATIVE Urine Glucose (UA) NEGATIVE NEGATIVE Urine Ketones NEGATIVE NEGATIVE Urine Nitrite NEGATIVE NEGATIVE Urine Bilirubin NEGATIVE NEGATIVE Urine Urobilinogen NORMAL NORMAL MG/DL Urine Leukocyte Esterase NEGATIVE NEGATIVE Urine RBC (Auto) NEGATIVE NEGATIVE Urine RBC NONE /HPF Urine WBC NONE /HPF Urine Squamous Epithelial Cells RARE /HPF Urine Crystals NONE /LPF Urine Bacteria NEGATIVE /HPF Urine Casts NONE /LPF Urine Mucus NEGATIVE /LPF Urine Culture Indicated NO My Orders Orders - KIRILL MADDEN MD Ns Iv 1000 Ml (Sodium Chloride 0.9%) (02/17/19 10:15) Ct Head/Cervical Spine Wo (02/17/19 10:25) Chest 1 View, Ap/Pa Only (02/17/19 10:25) Cbc With Automated Diff (02/17/19 10:25) Comprehensive Metabolic Panel (02/17/19 10:25) Hs C Reactive Protein (02/17/19 10:25) Magnesium (02/17/19 10:25) Ua Culture If Indicated (02/17/19 10:25) Ekg Tracing (02/17/19 10:25) Monitor-Rhythm Ecg Trace Only (02/17/19 10:25) Ed Iv/Invasive Line Start (02/17/19 10:25) Ns Iv 1000 Ml (Sodium Chloride 0.9%) (02/17/19 10:25) Lidocaine 2% Viscous 15 Ml (Xylocaine Vi (02/17/19 10:45) Antacid Suspension (Mylanta Suspension (02/17/19 10:45) Famotidine Injection (Pepcid Injection) (02/17/19 10:32) Troponin I (02/17/19 10:25) Aspirin Chewable Tablet (Baby Aspirin Ch (02/17/19 12:25) Medications Given in ED Current Medications Medications Dose Ordered Sig/Justino Route Start Time Stop Time Status Last Admin Dose Admin Al Hydrox/Mg Hydrox/Simethicone 30 ml ONCE ONCE PO 02/17/19 10:45 02/17/19 10:46 DC 02/17/19 10:59 30 ML Lidocaine HCl 15 ml ONCE ONCE PO 02/17/19 10:45 02/17/19 10:46 DC 02/17/19 10:59 15 ML Sodium Chloride 1,000 ml @ 0 mls/hr Q0M ONCE IV 02/17/19 10:25 02/17/19 10:28 DC 02/17/19 10:22 0 MLS/HR Vital Signs/I&O 02/17/19 10:04 Temp 96.7 Pulse 86 Resp 12 B/P (MAP) 94/81 (85) Progress Progress Note : Progress Note Seen and evaluated. CT head and neck ordered. We will get labs, EKG and chest x- ray due to the chest discomfort. Normal saline 1 L bolus. Monitor patient. 1220: Patient has removed her c-collar. CT is negative so we will ahead and cleared her C-spine. Still pending troponin level. Patient did get GI cocktail and Pepcid 20 mg IV and that seems to help. We'll go ahead and give her aspirin now. Monitor patient. 1325: Troponin negative. Discharged home with return precautions. Patient verbalize understanding instructions and agreement with plan. She will follow-up with cardiology and information was given to her. Initial ECG Impression Date: Feb 17, 2019 Initial ECG Impression Time: 10:10 Initial ECG Rate: 79 Initial ECG Rhythm: Normal Sinus Comment Sinus rhythm with flat T waves throughout. No evidence of ST elevation VA. Similar to previous of 04/05/10. Normal axis. Interpreted by me. Diagnostic Imaging Diagonstic Imaging: CT Plain Films/CT/US/NM/MRI: c-spine, head Comments [facility]. [place], [place] NAME: UMESH ARZOLA [facility] REC#: [id number] PT STATUS: REG ER : 1960 PHYSICIAN: KIRILL MADDEN MD ADMIT DATE: 02/17/19/ER Draft Date of Exam:02/17/19 CT HEAD/CERVICAL SPINE WO PROCEDURE: CT head and CT cervical spine without contrast. TECHNIQUE: Multiple contiguous axial images were obtained through the brain and cervical spine without the use of intravenous contrast. Sagittal and coronal reformations through the cervical spine were then performed. Auto Exposure Controls were utilized during the CT exam to meet ALARA standards for radiation dose reduction. INDICATION: Fall. COMPARISON: Comparison is made with prior CT from 04/29/2009. FINDINGS: CT head: Ventricles and sulci are within normal limits. No sulcal effacement or midline shift is seen. No acute intra-axial or extra-axial hemorrhage is detected. Cisterns are patent. The visualized paranasal sinuses are clear. IMPRESSION: No acute intracranial process is detected. CT cervical spine: Curvature and alignment of the cervical spine is normal. There is some generalized degenerative disc and facet disease with variable disc space narrowing and marginal spurring. No fractures are seen. Prevertebral tissues are within normal limits. The odontoid is intact. IMPRESSION: Cervical spondylosis. No acute bony abnormality is detected. Dictated on workstation # [id number] Dict: 02/17/19 1203 Trans: 02/17/19 1209 [facility] [id number] Interpreted by: CHELSEA FINNEY MD Electronically signed by: Diagonstic Imaging: Xray Plain Films/CT/US/NM/MRI: chest Comments [facility] [place] [place] NAME: UMESH ARZOLA [facility] REC#: [id number] PT STATUS: REG ER : 1960 PHYSICIAN: KIRILL MADDEN MD ADMIT DATE: 02/17/19/ER Draft Date of Exam:02/17/19 CHEST 1 VIEW, AP/PA ONLY INDICATION: Fall with chest pain. Frontal chest obtained at 12:11 p.m. and compared to 04/05/2010. Heart and mediastinal silhouette are normal in appearance. The lungs show no focal infiltrate. There is a calcified granuloma in the right upper lobe. There is no pneumothorax or pleural fluid. There is no overt bony abnormality visualized in the chest. IMPRESSION: No acute process in the chest. Dictated on workstation # [id number] Dict: 02/17/19 1222 Trans: 02/17/19 1237 [id number] Interpreted by: TITUS CLARK MD Electronically signed by: Departure Impression Primary Impression: Syncope Qualified Codes: R55 - Syncope and collapse Additional Impressions: Acute epigastric pain Acute chest pain Disposition: 01 HOME, SELF-CARE Condition: Stable Departure-Patient Inst. Decision time for Depature: 13:23 Referrals: [facility] M RIZWAN MD SPRENKLE, TIMOTHY L DO (PCP) Primary Care Physician Patient Instructions: Chest Pain, Acute Abdomen (Belly Pain), Adult (DC), Syncope (Fainting) Add. Discharge Instructions: Call and make appointment with Dr. Paige, skin carver, for appointment within the next week or 2. You should also call Dr. Ngo's office (dance studio manager) for appointment and follow-up with him as well for your lung problems. Return for worse pain, fever, vomiting, weakness, breathing problems or other concerns as needed. Continue to stop smoking as you are right now. Scripts Ipratropium Leon (Atrovent Hfa) 12.9 Gm Aers 2 PUFF IH Q6H, #1 INHALER 0 Refills Prov: KIRILL MADDEN MD 02/17/19 Work/School Note: Local Medical Staff Listing KIRILL MADDEN MD Feb 17, 2019 11:10
[2019-02-17 11:27] LABS: BASOPHILS # (AUTO) 0.1 10^3/uL (0.0-0.1); BASOPHILS % (AUTO) 1 % (0-10); EOSINOPHILS # (AUTO) 0.2 10^3/uL (0.0-0.3); EOSINOPHILS % (AUTO) 2 % (0-10); HEMATOCRIT 37 % (35-52); HEMOGLOBIN 13.1 G/DL (11.5-16.0); LYMPHOCYTES # (AUTO) 3.9 X 10^3 (1.0-4.0); LYMPHOCYTES % (AUTO) 45 % (12-44); MEAN CORPUSCULAR HEMOGLOBIN 32 PG (25-34); MEAN CORPUSCULAR HGB CONC 36 G/DL (32-36); MEAN CORPUSCULAR VOLUME 90 FL (80-99); MEAN PLATELET VOLUME 9.9 FL (7.4-10.4); MONOCYTES # (AUTO) 0.8 X 10^3 (0.0-1.0); MONOCYTES % (AUTO) 9 % (0-12); NEUTROPHILS # (AUTO) 3.8 X 10^3 (1.8-7.8); NEUTROPHILS % (AUTO) 44 % (42-75); PLATELET COUNT 162 10^3/uL (130-400); RED CELL DISTRIBUTION WIDTH 13.1 % (10.0-14.5); WHITE BLOOD COUNT 8.7 10^3/uL (4.3-11.0)
[2019-02-17 11:51] LABS: ALBUMIN 4.3 GM/DL (3.2-4.5); BILIRUBIN,TOTAL 0.7 MG/DL (0.1-1.0); CALCIUM 9.4 MG/DL (8.5-10.1); CREATININE SERUM 0.98 MG/DL (0.60-1.30); MAGNESIUM 2.4 MG/DL (1.8-2.4); POTASSIUM 3.9 MMOL/L (3.6-5.0); TOTAL PROTEIN 7.4 GM/DL (6.4-8.2)
--- NOTE | 2019-02-17 11:57 | NUR ---
PT DENIES ANY NEEDS OR C/O AT THIS TIME, PT HAS MOVED C COLLAR TO WHERE IT IS AROUND HER NOSE AND IS NO LONGER IN PROPER PLACEMENT, PHYSICIAN NOTIFIED OF THIS, PT SHOWS NO S/S OF DISTRESS, VS ASSESSED AND STABLE, WILL CONTINUE TO MONITOR
--- NOTE | 2019-02-17 12:09 | Diagnostic Imaging Report ---
PROCEDURE: CT head and CT cervical spine without contrast. TECHNIQUE: Multiple contiguous axial images were obtained through the brain and cervical spine without the use of intravenous contrast. Sagittal and coronal reformations through the cervical spine were then performed. Auto Exposure Controls were utilized during the CT exam to meet ALARA standards for radiation dose reduction. INDICATION: Fall. COMPARISON: Comparison is made with prior CT from 04/29/2009. FINDINGS: CT head: Ventricles and sulci are within normal limits. No sulcal effacement or midline shift is seen. No acute intra-axial or extra-axial hemorrhage is detected. Cisterns are patent. The visualized paranasal sinuses are clear. IMPRESSION: No acute intracranial process is detected. CT cervical spine: Curvature and alignment of the cervical spine is normal. There is some generalized degenerative disc and facet disease with variable disc space narrowing and marginal spurring. No fractures are seen. Prevertebral tissues are within normal limits. The odontoid is intact. IMPRESSION: Cervical spondylosis. No acute bony abnormality is detected. Dictated by: Dictated on workstation # [id number]
[2019-02-17] MEDS ORDERED: ASPIRIN 81 MG CHEW (CHILDREN'S ASA) PO STA (12:25)
--- NOTE | 2019-02-17 12:38 | Diagnostic Imaging Report ---
INDICATION: Fall with chest pain. Frontal chest obtained at 12:11 p.m. and compared to 04/05/2010. Heart and mediastinal silhouette are normal in appearance. The lungs show no focal infiltrate. There is a calcified granuloma in the right upper lobe. There is no pneumothorax or pleural fluid. There is no overt bony abnormality visualized in the chest. IMPRESSION: No acute process in the chest. Dictated by: Dictated on workstation # [id number]
[2019-02-17 12:43] LABS: BILIRUBIN,URINE NEGATIVE (NEGATIVE); CLARITY,URINE CLEAR; COLOR,URINE YELLOW; GLUCOSE, URINE (UA) NEGATIVE (NEGATIVE); KETONES,URINE NEGATIVE (NEGATIVE); LEUKOCYTE ESTERASE ,URINE NEGATIVE (NEGATIVE); NITRITE,URINE NEGATIVE (NEGATIVE); PH,URINE 5 (5-9); PROTEIN,URINE NEGATIVE (NEGATIVE); UROBILINOGEN,URINE NORMAL (NORMAL)
[2019-02-17 12:53] LABS: BACTERIA,URINE NEGATIVE /HPF; SQUAMOUS EPITHELIAL CELL,UR RARE /HPF
--- NOTE | 2019-02-17 13:00 | NUR ---
PT STATES SYMPTOMS HAVE IMPROVED AT THIS TIME, PT DENIES ANY NEEDS OR C/O AT THIS TIME, PT SHOWS NO S/S OF DISTRESS, VS ASSESSED AND STABLE, WILL CONTINUE TO MONITOR
[2019-02-17] MEDS ORDERED: IPR14IN IH (13:34)
[2019-02-17 13:43] VITALS: BP 94/81
== END 2019-02-17 13:42 | disposition home or self-care (01) ==
LOC: EDUNIT# 10:02 → ER 10:04
DX: R55 Syncope and collapse (principal); R10.13 Epigastric pain; R07.9 Chest pain, unspecified; J44.9 Chronic obstructive pulmonary disease, unspecified; F31.9 Bipolar disorder, unspecified; F41.9 Anxiety disorder, unspecified; K21.9 Gastro-esophageal reflux disease without esophagitis; F17.210 Nicotine dependence, cigarettes, uncomplicated; Z90.49 Acquired absence of other specified parts of digestive tract; Z90.710 Acquired absence of both cervix and uterus; Z88.5 Allergy status to narcotic agent; Z91.041 Radiographic dye allergy status; Z88.8 Allergy status to other drugs, medicaments and biological substances; Z79.82 Long term (current) use of aspirin; Z87.442 Personal history of urinary calculi; Z87.19 Personal history of other diseases of the digestive system; Z80.51 Family history of malignant neoplasm of kidney; Z80.8 Family history of malignant neoplasm of other organs or systems; Z82.49 Family history of ischemic heart disease and other diseases of the circulatory system
CPT/HCPCS: 36415; 70450; 71045; 72125; 80053; 81000; 83735; 84484; 85025; 86141; 93005; 93041; 96374

== ENCOUNTER 2019-07-22 10:42 | Observation (INO) | payer MEDICARE, MEDICAID ==
[2019-07-22] VITALS (10 sets, daily range): BP systolic 111–147; BP diastolic 66–107
[~2019-07-22] VITALS: Ht 172 cm; Wt 62.5 kg
[~2019-07-22 10:42] MED LIST changes: +IPR14IN IH; -OMEP20CA12; +OMEP20CA13
--- NOTE | 2019-07-22 11:26 | NUR ---
PT DENIES TAKING ANY MEDS AT THIS X
[2019-07-22 11:32] LABS: BASOPHILS % (AUTO) 1 % (0-10); EOSINOPHILS # (AUTO) 0.3 10^3/uL (0.0-0.3); EOSINOPHILS % (AUTO) 4 % (0-10); HEMATOCRIT 36 % (35-52); HEMOGLOBIN 12.8 G/DL (11.5-16.0); LYMPHOCYTES # (AUTO) 2.9 X 10^3 (1.0-4.0); LYMPHOCYTES % (AUTO) 33 % (12-44); MEAN CORPUSCULAR HEMOGLOBIN 32 PG (25-34); MEAN CORPUSCULAR HGB CONC 35 G/DL (32-36); MEAN CORPUSCULAR VOLUME 92 FL (80-99); MEAN PLATELET VOLUME 9.7 FL (7.4-10.4); MONOCYTES # (AUTO) 0.8 X 10^3 (0.0-1.0); MONOCYTES % (AUTO) 9 % (0-12); NEUTROPHILS # (AUTO) 4.8 X 10^3 (1.8-7.8); NEUTROPHILS % (AUTO) 55 % (42-75); PLATELET COUNT 228 10^3/uL (130-400); RED CELL DISTRIBUTION WIDTH 12.8 % (10.0-14.5); WHITE BLOOD COUNT 8.8 10^3/uL (4.3-11.0)
--- NOTE | 2019-07-22 11:41 | Diagnostic Imaging Report ---
INDICATION: Chest pain. TECHNIQUE: Single view chest 11:30 AM. CORRELATION STUDY: 02/17/2019 FINDINGS: The heart size, mediastinal configuration and pulmonary vascularity are within normal limits. Lung harry are slightly hyperinflated but overall clear. No infiltrate. Probable unchanged granuloma the right lung apex. IMPRESSION: 1. Stable chest demonstrates no acute abnormality. Dictated by: Dictated on workstation # [id number]
[2019-07-22 11:47] LABS: PROTHROMBIN TIME PATIENT 13.8 SEC (12.2-14.7)
[2019-07-22 11:50] LABS: ALBUMIN 4.5 GM/DL (3.2-4.5); BILIRUBIN,TOTAL 0.6 MG/DL (0.1-1.0); CALCIUM 9.4 MG/DL (8.5-10.1); CREATININE SERUM 1.37 MG/DL (0.60-1.30); MAGNESIUM 1.9 MG/DL (1.6-2.4); POTASSIUM 4.3 MMOL/L (3.6-5.0); TOTAL PROTEIN 7.6 GM/DL (6.4-8.2)
[2019-07-22] MEDS ORDERED: NS IV 1000 ML 1,000 ML IV SCH (12:14)
[2019-07-22 12:15] LABS: AMPHETAMINE SCREEN, URINE POSITIVE (NEGATIVE); BARBITURATE SCREEN URINE NEGATIVE (NEGATIVE); BENZODIAZEPINES SCREEN URINE POSITIVE (NEGATIVE); CANNABINOID SCREEN, URINE NEGATIVE (NEGATIVE); COCAINE SCREEN URINE NEGATIVE (NEGATIVE); METHADONE STAT NEGATIVE (NEGATIVE); METHAMPHETAMINE SCREEN URINE S POSITIVE (NEGATIVE); OPIATE SCREEN URINE POSITIVE (NEGATIVE); OXYCODONE STAT POSITIVE (NEGATIVE); PROPOXYPHENE STAT NEGATIVE (NEGATIVE); TRICYCLIC ANTIDEPRESSANTS SCRE NEGATIVE (NEGATIVE)
[2019-07-22] MEDS ORDERED: fentaNYL INJECTION 100 MCG/2 ML AMP ONE (12:17)
[2019-07-22] MEDS ORDERED: fentaNYL INJECTION 100 MCG/2 ML AMP IVP ONE (12:30)
--- NOTE | 2019-07-22 13:07 | Diagnostic Imaging Report ---
PROCEDURE: CT chest, abdomen, and pelvis without contrast. TECHNIQUE: Multiple contiguous axial images were obtained through the chest, abdomen, and pelvis without the use of intravenous contrast. Auto Exposure Controls were utilized during the CT exam to meet ALARA standards for radiation dose reduction. INDICATION: Chest pain. Symptoms since [place], one week. Post fall as well. CORRELATION STUDY: CT abdomen and pelvis, 11/16/2008. FINDINGS: CT CHEST: Assessment of the chest is limited given lack of contrast. The heart size is within normal limits. Thoracic aortic contour appears unremarkable with moderate calcification of the arch. Definitive pathologically enlarged mediastinal lymph nodes are not suggested on this noncontrast study. Lung harry with minimal scarring or atelectasis posteromedially at the right lung base. No consolidating infiltrate. Calcified granuloma at the right upper lobe. Osseous structures demonstrate no acute abnormality. CT ABDOMEN and PELVIS: Limitations given lack of contrast. Additionally, there is extensive metallic artifact from bilateral hip arthroplasty obscuring large portion of the pelvis. The unenhanced liver, spleen, pancreas, and adrenal glands are without acute abnormality. Gallbladder appears absent with multiple clips in the gallbladder fossa and kelly hepatic region. There is [id number] aortoiliac wall calcification, nonaneurysmal. The kidneys are without calcification. No obstructive uropathy. Gastrointestinal tract demonstrates a few fluid-filled loops of bowel to be present. No findings to suggest high-degree obstruction. No definitive inflammation. Appendix not discretely localized, but there are no focal right lower quadrant inflammatory changes. Distal stomach and duodenum slightly distended with fluid and gas. The partially distended bladder grossly unremarkable, again is markedly limited in assessment. There appears to be prior hysterectomy changes. IMPRESSION: CT CHEST: 1. Negative for acute abnormality of the chest. CT ABDOMEN and PELVIS: 1. No definite evidence of acute abnormality about the abdomen or pelvis. Assessment is fairly limited given lack of contrast. Question of slight distention of the stomach and duodenum likely of no significance. Post cholecystectomy changes. Dictated by: Dictated on workstation # [id number]
[2019-07-22] MEDS ORDERED: ASPIRIN 81 MG CHEW (CHILDREN'S ASA) PO ONE (14:00)
[2019-07-22] MEDS: NITROGLYCERIN 0.4 MG SL TABS BTL 25'S SL PRN ×3 (14:00→17:42)
--- NOTE | 2019-07-22 14:28 | ED Chest Pain ---
General Chief Complaint: Chest Pain Stated Complaint: CHEST PAIN Nursing Triage Note: PT TO TRIAGE CO OF CHEST PAIN, PT STATES HAS HAD SINCE , STATES FELL ON CHEST BONE FEW DAYS AGO, PT EYES ARE VERY RED AND WATERING, PT IS UNSTEADY ON FEET AND SLOW TO ANSWER QUESTIONS. PT IS ALERT AND ORIENTATED. PT STATES TOOK VALIUM YESTERDAY FROM FRIEND Nursing Sepsis Screen: No Definite Risk Source: patient Exam Limitations: no limitations History of Present Illness Date Seen by Provider: Jul 22, 2019 Time Seen by Provider: 10:52 Initial Comments This 59-year-old woman presents to the emergency room with primary complaint of chest pain. She states this started on when she fell in the attic and struck her chest. However, she also describes dyspnea and worsening pain on exertion. She has history of smoking and states she was supposed to follow-up with the nanoscience technician after a prior healthcare encounters but never did. She denies any drug or alcohol use. She also has had some cough and congestion recently for which she has taken Benadryl and NyQuil. She also admits to using a friend's Valium yesterday. Patient's son had stated patient may have some dem entia when he was conversing with the night clerk auditor. However, the son then left. She has no primary care provider. She last saw Dr. Dickinson over a year ago. Allergies and Home Medications Allergies Coded Allergies: propoxyphene (Unverified Allergy, Mild, 11/17/09) adhesive (Unverified Allergy, Unknown, RASH, 03/28/17) Iodinated Contrast Media (Verified Adverse Reaction, Intermediate, NAUSEA, 05/16/13) SEVERE VOMITTING Home Medications Aspirin 325 Mg Tabec, 325 MG PO DAILY, (Reported) Ipratropium [place] 12.9 Gm Aers, 2 PUFF IH Q6H Prescribed by: KIRILL MADDEN on 02/17/19 1334 Ondansetron 4 Mg Tab.rapdis, 4 MG PO Q6H PRN for NAUSEA/VOMITING-1ST LINE Prescribed by: FABIAN SNIDER on 03/28/17 1622 Oxycodone Hcl/Acetaminophen 1 Each Tablet, 1 EACH PO Q4-6H PRN, (Reported) Patient Home Medication List Home Medication List Reviewed: Yes Review of Systems Review of Systems Constitutional: no symptoms reported EENTM: No Symptoms Reported Respiratory: See HPI Cardiovascular: See HPI Gastrointestinal: No Symptoms Reported Genitourinary: No Symptoms Reported Musculoskeletal: see HPI Skin: no symptoms reported Psychiatric/Neurological: No Symptoms Reported Endocrine: No Symptoms Reported Hematologic/Lymphatic: No Symptoms Reported Past Wfemipa-Lqobqu-Vtizts Hx Patient Social History Alcohol Use: Denies Use Recreational Drug Use: No Smoking Status: Current Everyday Smoker Type Used: Cigarettes 2nd Hand Smoke Exposure: Yes Recent Foreign Travel: No Contact w/Someone Who Travel: No Recent Infectious Disease Expo: No Recent Hopitalizations: No (PNEUMONIA, KIDNEY INFECTIONS, SURGERIES) Physical Abuse: No Sexual Abuse: No Immunizations Up To Date Tetanus Booster (TDap): Unknown Date of Pneumonia Vaccine: Jul 22, 2008 Seasonal Allergies Seasonal Allergies: Yes ("SINUS PROBLEMS") Past Medical History Surgeries: Yes (HYST,APPY,SHWETHA, COCCYX BONE, R HIP) Appendectomy, Gallbladder, 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, Orthopedic Respiratory: Yes COPD Cardiac: Yes (WPW, tachycardia) Neurological: No : No Reproductive Disorders: No 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 Sexually Transmitted Disease: No HIV/AIDS: No Kidney Infection, Kidney Stones Gastrointestinal: Yes Gastroesophageal Reflux, Ulcer Musculoskeletal: Yes Arthritis Endocrine: No Cataract Loss of Vision: Denies Hearing Impairment: Denies Cancer: No Psychosocial: No Sleep Difficulties, Anxiety, Depression Integumentary: No (BLISTERS FROM RECENT TAPE) Blood Disorders: No Adverse Reaction/Blood Tranf: No Family Medical History Reviewed Nursing Family Hx Cancer 03 MOTHER (SPINAL AND KIDNEY) Cataract 03 MOTHER Congestive heart failure 03 FATHER Family history: Gastrointestinal disease 09 BROTHER Family history: Hypertension 03 FATHER 03 MOTHER 09 BROTHER Myocardial infarction 03 FATHER 09 BROTHER Parkinson's disease 03 MOTHER Stroke 03 MOTHER 09 BROTHER (TIA) 09 SISTER (TIA) No Pertinent Family Hx Physical Exam Vital Signs Vital Signs - First Documented 07/22/19 10:45 Temp 36.6 Pulse 105 Resp 18 B/P (MAP) 116/87 (97) Pulse Ox 99 O2 Delivery Room Air Capillary Refill : Less Than 3 Seconds Height, Weight, BMI Height: 5'5.00" Weight: 154lbs. oz. 69.939324jy; 23.00 BMI Method:Stated General Appearance: No Apparent Distress, WD/WN HEENT: PERRL/EOMI, Normal ENT Inspection Neck: Normal Inspection Respiratory: Lungs Clear, Normal Breath Sounds, No Accessory Muscle Use, No Respiratory Distress, Other (anterior chest tender to palpation) Cardiovascular: Regular Rate, Rhythm, No Edema, No Murmur, Normal Peripheral Pulses Gastrointestinal: Normal Bowel Sounds, Soft, Tenderness (mild, generalized) Extremity: Normal Inspection, No Pedal Edema Neurologic/Psychiatric: Oriented x3, No Motor/Sensory Deficits, Normal Mood/Affect, communication center coordinator II-XII Norm as Tested Skin: Normal Color, Warm/Dry Progress/Results/Core Measures Results/Orders Lab Results Laboratory Tests Test 07/22/19 11:25 07/22/19 12:00 Range/Units White Blood Count 8.8 4.3-11.0 10^3/uL Red Blood Count 3.95 L 4.35-5.85 10^6/uL Hemoglobin 12.8 11.5-16.0 G/DL Hematocrit 36 35-52 % Mean Corpuscular Volume 92 80-99 FL Mean Corpuscular Hemoglobin 32 25-34 PG Mean Corpuscular Hemoglobin Concent 35 32-36 G/DL Red Cell Distribution Width 12.8 10.0-14.5 % Platelet Count 228 130-400 10^3/uL Mean Platelet Volume 9.7 7.4-10.4 FL Neutrophils (%) (Auto) 55 42-75 % Lymphocytes (%) (Auto) 33 12-44 % Monocytes (%) (Auto) 9 0-12 % Eosinophils (%) (Auto) 4 0-10 % Basophils (%) (Auto) 1 0-10 % Neutrophils # (Auto) 4.8 1.8-7.8 X 10^3 Lymphocytes # (Auto) 2.9 1.0-4.0 X 10^3 Monocytes # (Auto) 0.8 0.0-1.0 X 10^3 Eosinophils # (Auto) 0.3 0.0-0.3 10^3/uL Basophils # (Auto) 0.0 0.0-0.1 10^3/uL Prothrombin Time 13.8 12.2-14.7 SEC INR Comment 1.0 0.8-1.4 Activated Partial Thromboplast Time 24 24-35 SEC D-Dimer 0.77 H 0.00-0.49 UG/ML Sodium Level 139 135-145 MMOL/L Potassium Level 4.3 3.6-5.0 MMOL/L Chloride Level 108 H 98-107 MMOL/L Carbon Dioxide Level 17 L 21-32 MMOL/L Anion Gap 14 5-14 MMOL/L Blood Urea Nitrogen 23 H 7-18 MG/DL Creatinine 1.37 H 0.60-1.30 MG/DL Estimat Glomerular Filtration Rate 40 BUN/Creatinine Ratio 17 Glucose Level 89 70-105 MG/DL Calcium Level 9.4 8.5-10.1 MG/DL Corrected Calcium 9.0 8.5-10.1 MG/DL Magnesium Level 1.9 1.6-2.4 MG/DL Total Bilirubin 0.6 0.1-1.0 MG/DL Aspartate Amino Transf (AST/SGOT) 28 5-34 U/L Alanine Aminotransferase (ALT/SGPT) 16 0-55 U/L Alkaline Phosphatase 140 H 40-136 U/L Myoglobin 137.2 H 10.0-92.0 NG/ML Troponin I < 0.028 <0.028 NG/ML Total Protein 7.6 6.4-8.2 GM/DL Albumin 4.5 3.2-4.5 GM/DL Serum Alcohol < 10 <10 MG/DL Urine Opiates Screen POSITIVE H NEGATIVE Urine Oxycodone Screen POSITIVE H NEGATIVE Urine Methadone Screen NEGATIVE NEGATIVE Urine Propoxyphene Screen NEGATIVE NEGATIVE Urine Barbiturates Screen NEGATIVE NEGATIVE Ur Tricyclic Antidepressants Screen NEGATIVE NEGATIVE Urine Phencyclidine Screen NEGATIVE NEGATIVE Urine Amphetamines Screen POSITIVE H NEGATIVE Urine Methamphetamines Screen POSITIVE H NEGATIVE Urine Benzodiazepines Screen POSITIVE H NEGATIVE Urine Cocaine Screen NEGATIVE NEGATIVE Urine Cannabinoids Screen NEGATIVE NEGATIVE My Orders Orders - FARZANA BARONE MD Cbc With Automated Diff (07/22/19 10:52) Magnesium (07/22/19 10:52) Chest 1 View, Ap/Pa Only (07/22/19 10:52) Ekg Tracing (07/22/19 10:52) Comprehensive Metabolic Panel (07/22/19 10:52) Myoglobin Serum (07/22/19 10:52) Protime With Inr (07/22/19 10:52) Partial Thromboplastin Time (07/22/19 10:52) O2 (07/22/19 10:52) Monitor-Rhythm Ecg Trace Only (07/22/19 10:52) Lipid Panel (07/23/19 06:00) Ed Iv/Invasive Line Start (07/22/19 10:52) Fibrin Degradation Products (07/22/19 10:52) Troponin I (07/22/19 10:52) Alcohol (07/22/19 10:52) Drug Screen Stat (Urine) (07/22/19 10:52) Ct Chest/Abdomen/Pelvis Wo (07/22/19 12:13) Ns Iv 1000 Ml (Sodium Chloride 0.9%) (07/22/19 12:14) Fentanyl Injection (Sublimaze Injection (07/22/19 12:30) Fentanyl Injection (Sublimaze Injection (07/22/19 12:17) Nitroglycerin 0.4 Mg Btl 25's (Nitrostat (07/22/19 14:00) Aspirin Chewable Tablet (Baby Aspirin Ch (07/22/19 14:00) Oxycodone/Apap 5/325mg Tablet (Percocet (07/22/19 14:30) Enoxaparin Injection (Lovenox Injection) (07/22/19 14:45) Medications Given in ED Current Medications Medications Dose Ordered Sig/Justino Route Start Time Stop Time Status Last Admin Dose Admin Aspirin 324 mg ONCE ONCE PO 07/22/19 14:00 07/22/19 14:01 DC 07/22/19 14:00 324 MG Fentanyl Citrate 50 mcg ONCE ONCE IVP 07/22/19 12:30 07/22/19 12:31 DC 07/22/19 12:24 50 MCG Nitroglycerin 0.4 mg UD PRN SL 07/22/19 14:00 07/22/19 14:06 0.4 MG Oxycodone/ Acetaminophen 1 tab ONCE ONCE PO 07/22/19 14:30 07/22/19 14:31 DC 07/22/19 14:48 1 TAB Vital Signs/I&O 07/22/19 07/22/19 10:45 10:45 Temp 36.6 Pulse 105 Resp 18 B/P (MAP) 116/87 (97) Pulse Ox 99 O2 Delivery Room Air Blood Pressure Mean: 97 Progress Progress Note : Progress Note Patient was initially evaluated with the chest pain order set. In addition a CT of the chest, abdomen and pelvis was obtained to rule out traumatic injury. No injuries were identified. Patient was then treated with nitroglycerin and aspirin as part of a chest pain workup. Patient states her pain improved from 7/10 down to 2/10 after nitroglycerin 2. She is being hydrated with a 1 L normal saline bolus. Case was discussed with Dr. Pena who agrees with admission for chest pain rule out. Hopefully she can have a CT angiogram of the chest after creatinine improves with hydration. Lovenox 70 mg subcutaneous is being given for presumptive treatment of PE/DVT. Patient was methamphetamine positive on her drug screen. I discussed CODE STATUS with the patient and she very clearly states she wishes to have a DO NOT RESUSCITATE order. Initial ECG Impression Date: Jul 22, 2019 Initial ECG Impression Time: 10:48 Initial ECG Rate: 96 Initial ECG Rhythm: Normal Sinus Initial ECG Impression: Normal Comment Normal sinus rhythm with no ST elevation or depression. No abnormal intervals or axis deviation. Diagnostic Imaging Diagonstic Imaging: Xray Plain Films/CT/US/NM/MRI: chest Comments Chest x-ray viewed by me and report reviewed. See report below: [id number] PT STATUS: REG ER : 1960 PHYSICIAN: FARZANA BARONE MD ADMIT DATE: 07/22/19/ER Signed Date of Exam:07/22/19 CHEST 1 VIEW, AP/PA ONLY INDICATION: Chest pain. TECHNIQUE: Single view chest 11:30 AM. CORRELATION STUDY: 02/17/2019 FINDINGS: The heart size, mediastinal configuration and pulmonary vascularity are within normal limits. Lung harry are slightly hyperinflated but overall clear. No infiltrate. Probable unchanged granuloma the right lung apex. IMPRESSION: 1. Stable chest demonstrates no acute abnormality. Dictated by: Dictated on workstation # [id number] Dict: 07/22/19 1140 Trans: 07/22/19 1413 DO [id number] Interpreted by: ASHLEY YANEZ DO Electronically signed by: ASHLEY YANEZ DO 07/22/19 1413 Diagonstic Imaging: CT Plain Films/CT/US/NM/MRI: chest, abdomen, pelvis Comments Chest, abdomen and pelvis viewed by me and report reviewed. See report below: [facility] [id number] PT STATUS: ADM Horacio : 1960 PHYSICIAN: FARZANA BARONE MD ADMIT DATE: 07/22/19 Signed Date of Exam:07/22/19 CT CHEST/ABDOMEN/PELVIS WO PROCEDURE: CT chest, abdomen, and pelvis without contrast. TECHNIQUE: Multiple contiguous axial images were obtained through the chest, abdomen, and pelvis without the use of intravenous contrast. Auto Exposure Controls were utilized during the CT exam to meet ALARA standards for radiation dose reduction. INDICATION: Chest pain. Symptoms since [place], one week. Post fall as well. CORRELATION STUDY: CT abdomen and pelvis, 11/16/2008. FINDINGS: CT CHEST: Assessment of the chest is limited given lack of contrast. The heart size is within normal limits. Thoracic aortic contour appears unremarkable with moderate calcification of the arch. Definitive pathologically enlarged mediastinal lymph nodes are not suggested on this noncontrast study. Lung harry with minimal scarring or atelectasis posteromedially at the right lung base. No consolidating infiltrate. Calcified granuloma at the right upper lobe. Osseous structures demonstrate no acute abnormality. CT ABDOMEN and PELVIS: Limitations given lack of contrast. Additionally, there is extensive metallic artifact from bilateral hip arthroplasty obscuring large portion of the pelvis. The unenhanced liver, spleen, pancreas, and adrenal glands are without acute abnormality. Gallbladder appears absent with multiple clips in the gallbladder fossa and kelly hepatic region. There is [id number] aortoiliac wall calcification, nonaneurysmal. The kidneys are without calcification. No obstructive uropathy. Gastrointestinal tract demonstrates a few fluid-filled loops of bowel to be present. No findings to suggest high-degree obstruction. No definitive inflammation. Appendix not discretely localized, but there are no focal right lower quadrant inflammatory changes. Distal stomach and duodenum slightly distended with fluid and gas. The partially distended bladder grossly unremarkable, again is markedly limited in assessment. There appears to be prior hysterectomy changes. IMPRESSION: CT CHEST: 1. Negative for acute abnormality of the chest. CT ABDOMEN and PELVIS: 1. No definite evidence of acute abnormality about the abdomen or pelvis. Assessment is fairly limited given lack of contrast. Question of slight distention of the stomach and duodenum likely of no significance. Post cholecystectomy changes. Dictated by: Dictated on workstation # [id number] Dict: 07/22/19 1249 Trans: 07/22/19 1546 [id number] Interpreted by: ASHLEY YANEZ DO Electronically signed by: ASHLEY YANEZ DO 07/22/19 1546 Departure Communication (Admissions) Time/Spoke to Admitting Phy: 14:27 Dr. Pena Time/Spoke to Consulting Phy: 14:25 Left a message with Dr. Paige Impression Primary Impression: Chest pain Qualified Codes: R07.9 - Chest pain, unspecified Additional Impressions: Fall with injury Qualified Codes: W19.XXXA - Unspecified fall, initial encounter Elevated d-dimer Methamphetamine abuse Disposition: ADMITTED INPATIENT Condition: Improved Admissions Decision to Admit Reason: Admit from ER (General) Decision to Admit/Date: Jul 22, 2019 Time/Decision to Admit Time: 14:27 Departure-Patient Inst. Referrals: NO,LOCAL PHYSICIAN (PCP/Family) Primary Care Physician FARZANA BARONE MD Jul 22, 2019 14:28
[2019-07-22] MEDS ORDERED: oxyCODONE/APAP 5/325MG (PERCOCET 5) TABLET PO ONE (14:30)
[2019-07-22] MEDS ORDERED: ENOXAPARIN 80 MG/0.8 ML (LOVENOX) SYR SC ONE (14:45)
--- NOTE | 2019-07-22 15:09 | NUR ---
DAUGHTER STATES PT WAS CONFUSED TODAY.
--- NOTE | 2019-07-22 15:30 | NUR ---
UMESH ARZOLA admitted to room 423-1, with an admitting diagnosis of CHEST PAIN, on 07/22/19 from ED via W/C, accompanied by FRIEND, SISTER AND ED STAFF. UMESH ARZOLA introduced to surroundings, call light, bed controls, phone, TV, temperature control, lights, meal times, smoking policy, visitor policy, side rail policy, bathrooms and showers. Patient Rights given to patient in the handbook. UMESH ARZOLA verbalizes understanding that [facility] is not responsible for the loss or damage to any personal effects or valuables that are kept in the patients possession during their hospitalization.
[2019-07-22] MEDS: NS IV 1000 ML 1,000 ML IV SCH ×2 (16:00→22:09)
--- NOTE | 2019-07-22 16:08 | Consultation-Cardiology ---
HPI-Cardiology Cardiology Consultation: Date of Consultation 07/22/19 Date of Admission Attending Physician Fernanda Pena MD Admitting Physician No,Local Physician Consulting Physician Elvira RYAN MD HPI: Time Seen by a Provider: 16:22 Chief Complaint: Chest pain This is a 59-year-old lady who has history of drug abuse as well as active smoking. She presents with a fall on . She is having chest pain. Central chest. No radiation. Worse with movement. No other associated cardiac symptoms including shortness of breath, syncope, near-syncope or palpitations. Negative pertinent family history. Review of Systems-Cardiology Review of Systems Constitutional: As described under HPI; No As described under HPI, No no symptoms reported, No chills, No fever, No lightheadedness Eyes: No As described under HPI, No no symptoms reported, No blindness, No blurred vision, No contact lenses, No drainage, No decreased acuity, No foreign body sensation, No pain, No vision change Ears/Nose/Throat: No As described under HPI, No no symptoms reported, No chronic hearing loss, No ear discharge, No ear pain, No nasal drainage, No ulcerations Respiratory: No no symptoms reported; As described under HPI; No As described under HPI, No cough, No orthopnea, No shortness of breath, No SOB with excertion Cardiovascular: No no symptoms reported; As described under HPI; No As described under HPI; chest pain; No edema, No irregular heart rate, No lightheadedness, No palpitations Gastrointestinal: No no symptoms reported, No As described under HPI, No abdomen distended, No abdominal pain, No blood streaked bowels, No constipation, No diarrhea, No nausea, No vomiting, No stool coloration changes Genitourinary: No As described under HPI, No burning, No dysuria, No discharge, No frequency, No flank pain, No hematuria, No urgency : Yes : No Skin: No rash, No skin related problems, No ulcerations Psychiatric/Neurological: No anxiety, No depression, No seizure, No focal weakness, No syncope Hematologic: No bleeding abnormalities IWX-Pwyhgb-Dkhlnh Hx Patient Social History Alcohol Use: Denies Use Recreational Drug Use: No Smoking Status: Current Everyday Smoker Type Used: Cigarettes 2nd Hand Smoke Exposure: Yes Recent Foreign Travel: No Recent Infectious Disease Expo: No Hospitalization with Isolation: Denies Immunizations Up To Date Tetanus Booster (TDap): Unknown Date of Pneumonia Vaccine: Jul 22, 2008 Past Medical History PMH As described under Assessment. Family Medical History Family History: Cancer 03 MOTHER (SPINAL AND KIDNEY) Cataract 03 MOTHER Congestive heart failure 03 FATHER Family history: Gastrointestinal disease 09 BROTHER Family history: Hypertension 03 FATHER 03 MOTHER 09 BROTHER Myocardial infarction 03 FATHER 09 BROTHER Parkinson's disease 03 MOTHER Stroke 03 MOTHER 09 BROTHER (TIA) 09 SISTER (TIA) Allergies and Home Medications Allergies Coded Allergies: propoxyphene (Unverified Allergy, Mild, 11/17/09) adhesive (Unverified Allergy, Unknown, RASH, 03/28/17) Iodinated Contrast Media (Verified Adverse Reaction, Intermediate, NAUSEA, 05/16/13) SEVERE VOMITTING Home Medications Aspirin 325 Mg Tabec, 325 MG PO DAILY, (Reported) Ipratropium [place] 12.9 Gm Aers, 2 PUFF IH Q6H Prescribed by: KIRILL MADDEN on 02/17/19 1334 Ondansetron 4 Mg Tab.rapdis, 4 MG PO Q6H PRN for NAUSEA/VOMITING-1ST LINE Prescribed by: FABIAN SNIDER on 03/28/17 1622 Oxycodone Hcl/Acetaminophen 1 Each Tablet, 1 EACH PO Q4-6H PRN, (Reported) Patient Home Medication List Home Medication List Reviewed: Yes Physical Exam-Cardiology Physical Exam Vital Signs/I&O 07/22/19 07/22/19 07/22/19 07/22/19 10:45 10:45 15:16 15:30 Temp 36.6 37.2 Pulse 105 93 67 Resp 18 18 18 B/P (MAP) 116/87 (97) 121/73 (97) 147/71 Pulse Ox 99 99 99 O2 Delivery Room Air Room Air Room Air 07/22/19 07/22/19 15:30 16:11 Temp 37.2 Pulse 67 81 Resp 18 B/P (MAP) 147/71 (96) Pulse Ox 99 O2 Delivery Room Air Capillary Refill : Less Than 3 Seconds Constitutional: appears stated age; No apparent distress; well-developed, well- nourished HEENT: PERRL; No discharge; hearing is well preserved, oral hygience is good; No ulceration, No xanthelasmas are seen Neck: No carotid bruit; carotid pulses are 2 + bilaterally Respiratory: chest is bilaterally symmetric, lungs clear to auscultation Cardiovascular: regular rate-rhythm, S1 and S2 Gastrointestinal: soft, audible bowel sounds; No spleenomegaly Rectal: deferred Extremities: normal range of motion, non-tender, normal inspection; No clubbing, No cyanosis; no lower extremity edema bilateral; No significant edema Neurologic/Psychiatric: no motor/sensory deficits, alert, normal mood/affect, oriented x 3, power is 5/5 both on sides Skin: normal color, warm/dry; No rash, No ulcerations Data Review Labs Laboratory Tests 07/22/19 11:25: White Blood Count 8.8, Red Blood Count 3.95L, Hemoglobin 12.8, Hematocrit 36, Mean Corpuscular Volume 92, Mean Corpuscular Hemoglobin 32, Mean Corpuscular Hemoglobin Concent 35, Red Cell Distribution Width 12.8, Platelet Count 228, Mean Platelet Volume 9.7, Neutrophils (%) (Auto) 55, Lymphocytes (%) (Auto) 33, Monocytes (%) (Auto) 9, Eosinophils (%) (Auto) 4, Basophils (%) (Auto) 1, Neutrophils # (Auto) 4.8, Lymphocytes # (Auto) 2.9, Monocytes # (Auto) 0.8, Eosinophils # (Auto) 0.3, Basophils # (Auto) 0.0, Prothrombin Time 13.8, INR Comment 1.0, Activated Partial Thromboplast Time 24, D-Dimer 0.77H, Sodium Level 139, Potassium Level 4.3, Chloride Level 108H, Carbon Dioxide Level 17L, Anion Gap 14, Blood Urea Nitrogen 23H, Creatinine 1.37H, Estimat Glomerular Filtration Rate 40, BUN/Creatinine Ratio 17, Glucose Level 89, Calcium Level 9.4, Corrected Calcium 9.0, Magnesium Level 1.9, Total Bilirubin 0.6, Aspartate Amino Transf (AST/SGOT) 28, Alanine Aminotransferase (ALT/SGPT) 16, Alkaline Phosphatase 140H , Myoglobin 137.2H, Troponin I < 0.028, Total Protein 7.6, Albumin 4.5, Serum Alcohol < 10 07/22/19 12:00: Urine Opiates Screen POSITIVEH, Urine Oxycodone Screen POSITIVEH, Urine Methadone Screen NEGATIVE, Urine Propoxyphene Screen NEGATIVE, Urine Barbiturates Screen NEGATIVE, Ur Tricyclic Antidepressants Screen NEGATIVE, Urine Phencyclidine Screen NEGATIVE, Urine Amphetamines Screen POSITIVEH, Urine Methamphetamines Screen POSITIVEH, Urine Benzodiazepines Screen POSITIVEH, Urine Cocaine Screen NEGATIVE, Urine Cannabinoids Screen NEGATIVE ECG Impression ECG Initial ECG Rhythm: Normal Sinus Initial ECG Impression: Nonspecific Changes A/P-Cardiology Assessment/Admission Diagnosis Chest trauma, Chest pain, Active drug abuse, Active smoking, Hypertension, COPD Plan Chest trauma, CT scan negative. Chest pain, serial troponin. First EKG negative. If serial troponin negative will request nuclear stress testing. Active drug abuse, defer to the primary team. Active smoking, smoking cessation strongly recommended. Hypertension, continue outpatient medical therapy. COPD, continue outpatient inhalers. Thank you for your consultation. Please call me if you have any questions. Shannon Ryan MD, FACP, FACC, FSCAI, FHRS, CCDS Interventional Cardiology Cardiac Electrophysiology Vascular Medicine and Endovascular Interventions Clinical Quality Measures AMI/AHF: ASA po Prior to arrival: Elvira Gee MD Jul 22, 2019 16:08
[2019-07-22] MEDS: morphine INJ 4 MG/ML 1 ML (VIAL/SYRINGE) IV PRN ×2 (17:52→21:24)
[2019-07-22] MEDS ORDERED: REGADENOSON 0.4 MG/5 ML SYR (LEXISCAN) IV ONE (18:00)
[2019-07-23] MEDS: morphine INJ 4 MG/ML 1 ML (VIAL/SYRINGE) IV PRN ×2 (02:02→03:55)
--- NOTE | 2019-07-23 03:26 | NUR ---
0326- THIS RN NOTIFIED BY PATIENT OF CONSTANT, SHARP CHEST PAIN TO MEDIAL STERNUM WITHOUT RADIATION. PT INSTRUCTED TO TAKE DEEP BREATHS THROUGH NOSE AND OUT OF HER MOUTH. CHEST PAIN PERSISTS WITHOUT RELIEF. 0330- NITRO 0.4 MG GIVEN SUBLINGUAL UNDER TONGUE PER ORDER AT THIS TIME. 0336- EKG OBTAINED PER CHEST PAIN PRN ORDER. EKG SHOWS SINUS TACHYCARDIA. 0335- CHEST PAIN NOT RELIEVED BY FIRST NITRO. SECOND NITRO 0.4 MG GIVEN SUBLINGUALLY PER ORDER. 0337- VS FOLLOWING BP- 95/63 PULSE 76 RESPIRATION 22 O2 SAT OF 97% ON RA. 0340- CHEST PAIN STILL PRESENT. THIRD NITRO 0.4 MG GIVEN PER ORDER. 0350- NITRO HAD NO EFFECT. CHEST PAIN STILL PRESENT. MORPHINE 4 MG GIVEN PER ORDER IF CHEST PAIN NOT CONTROLLED BY NITRO. 0356- DR. RYAN NOTIFIED OF PATIENT'S CONSISTENT CHEST PAIN AFTER MEDICATION, EKG, AND VITAL SIGNS. SHELBY NOTIFIED THIS RN THAT THE ISSUE ISN'T CARDIAC RELATED AND I WOULD HAVE TO CONTACT THE PRIMARY CARE TEAM FOR ADDITIONAL ORDERS. 0359- DR. GOMEZ NOTIFIED OF PATIENT CONDITION. MEDICATIONS GIVEN. EKG RESULTS AND DR. RYAN'S STATEMENT. NEW ORDERS FOR TORADOL 15 MG IV Q6 FOR PAIN RECEIVED AT THIS TIME. 0406- TORADOL 15 MG IV GIVEN PER ORDER AT THIS TIME. 0415- PATIENT STATES HER CHEST PAIN HAS IMPROVED AND ISN'T BAD IT WAS BEFORE. PATIENT INSTRUCTED TO TAKE DEEP BREATHS THROUGH NOSE AND OUT OF HER MOUTH. FAMILY PRESENT AT THIS TIME AND FURTHER EDUCATED ON THE TESTS/PROCEDURES THAT WOULD BE TAKING PLACE TODAY. PATIENT AT EASE AT THIS TIME. WILL CONTINUE TO MONITOR FOR ADDITIONAL CHEST PAIN AND SYMPTOMS.
[2019-07-23] MEDS: NITROGLYCERIN 0.4 MG SL TABS BTL 25'S SL PRN ×3 (03:30→03:40)
[2019-07-23 03:37] VITALS: BP 95/63
[2019-07-23] MEDS ORDERED: KETOROLAC 30 MG/ML VIAL ONE (03:57)
[2019-07-23 04:00] VITALS: BP 128/67
[2019-07-23] MEDS ORDERED: KETOROLAC 15 MG/ML VIAL IVP ONE (04:00)
[2019-07-23] MEDS: NS IV 1000 ML 1,000 ML IV SCH (04:36)
--- NOTE | 2019-07-23 07:04 | NUR ---
0530- IV STARTED LEAKING. TRIED TO MAINTAIN IV ACCESS, BUT UPON ASSESSMENT IV WAS NOT SALVAGEABLE. PATIENT ANXIOUS ABOUT THE START OF ANOTHER IV, BUT WAS WILLING TO ALLOW US TO TRY. UNSUCCESSFUL ATTEMPT X1 BY ELIZABETH CASTELLON. UNSUCCESSFUL ATTEMPT X1 BY ELIZABETH GRAYSON. 0620- THIS RN LET THE PATIENT CALM DOWN FROM THE UNSUCCESSFUL IV ATTEMPTS AT PATIENT REQUEST. NOTIFIED DR. GOMEZ THAT IV ACCESS WAS LIMITED IN THE UPPER ARMS AND ASKED IF WE COULD TRY TO STICK ONE IN HER FOOT OR LOWER EXTREMITY. DR. GOMEZ AGREED AND ORDERED IV STICK IN FOOT OR TO CONTACT [facility] FOR ULTRASOUND GUIDED IV INSERTION. 0625- THIS RN EXPLAINED TO THE PATIENT THAT IV ACCESS IN THE ARMS WAS LIMITED AND WE WOULD LIKE TO TRY TO FIND AN IV IN THE FOOT OR LOWER EXTREMITY. PATIENT AGREES AND ALLOWS US TO TRY IV. THIS RN HAD X1 UNSUCCESSFUL IV ATTEMPT IN FOOT. PT BECOMES AGITATED AND SCREAMS "GET THAT FUCKING THING OUT OF ME RIGHT NOW. I AM SO FUCKING DOWN WITH THIS PLACE. I AM DONE." I IMMEDIATELY REMOVED THE IV AND PATIENT STATES "I WANT TO LEAVE." THIS RN ASKS, "ARE YOU TELLING ME YOU WOULD LIKE TO LEAVE AMA?" PT STATES YES. 0634- DR. GOMEZ NOTIFIED OF PATIENT'S REQUEST TO LEAVE AMA. DR. GOMEZ AGREES AND SAYS LET HER LEAVE. 0638- AMA PAPERWORK SIGNED BY PATIENT. RISKS OF LEAVING AMA DISCUSSED WITH PATIENT THAT LEAVING AMA COULD RESULT IN AND THAT HER CHEST PAIN WOULD NOT BE FIGURED OUT. PT AGREES AND SIGNS PAPERWORK AT THIS TIME. 0710- PATIENT LEAVES WITH SON CARRYING HER OWN PERSONAL BELONGINGS.
[2019-07-23] MEDS ORDERED: ASPIRIN E.C. 81 MG (ECOTRIN) TAB PO SCH (09:00)
--- NOTE | 2019-07-23 09:14 | Short Stay Summary-Hospitalist ---
History of Present Illness HPI/Chief Complaint THIS IS FOR DOCUMENTATION PURPOSES ONLY. I DID NOT SEE PATIENT PRIOR TO HER LEAVING AMA. Date Seen 07/23/19 Time Seen by a Provider: 13:39 Attending Physician Radha Pena MD PCP No,Local Physician Referring Physician Date of Admission Jul 22, 2019 at 14:33 Home Medications & Allergies Home Medications Reviewed patient Home Medication Reconciliation performed by pharmacy medication reconciliations all terrain vehicle technician and/or nursing. Patients Allergies have been reviewed. Allergies Allergies Coded Allergies propoxyphene (Unverified Allergy, Mild, 11/17/09) adhesive (Unverified Allergy, Unknown, RASH, 03/28/17) Iodinated Contrast Media (Verified Adverse Reaction, Intermediate, NAUSEA, 05/16/13) SEVERE VOMITTING Past Eazqtqk-Rcgzuz-Dwimco Hx Past Med/Social Hx: Reviewed Nursing Past Med/Soc Hx Patient Social History Alcohol Use: Denies Use Recreational Drug Use: No Smoking Status: Current Everyday Smoker Type Used: Cigarettes 2nd Hand Smoke Exposure: Yes Recent Foreign Travel: No Contact w/other who traveled: No Recent Hopitalizations: No (PNEUMONIA, KIDNEY INFECTIONS, SURGERIES) Recent Infectious Disease Expo: No Immunizations Up To Date Tetanus Booster (TDap): Unknown Date of Pneumonia Vaccine: Jul 22, 2008 Seasonal Allergies Seasonal Allergies: Yes ("SINUS PROBLEMS") Past Medical History Surgeries: Appendectomy, Gallbladder, 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, Orthopedic : No Reproductive: No Sexually Transmitted Disease: No HIV/AIDS: No 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 Genitourinary: Kidney Infection, Kidney Stones Gastrointestinal: Gastroesophageal Reflux, Ulcer Musculoskeletal: Arthritis HEENT: Cataract Loss of Vision: Denies Hearing Impairment: Denies Psychosocial: Sleep Difficulties, Anxiety, Depression History of Blood Disorders: No Adverse Reaction to Blood Hdz: No Family History Reviewed Nursing Family Hx Cancer 03 MOTHER (SPINAL AND KIDNEY) Cataract 03 MOTHER Congestive heart failure 03 FATHER Family history: Gastrointestinal disease 09 BROTHER Family history: Hypertension 03 FATHER 03 MOTHER 09 BROTHER Myocardial infarction 03 FATHER 09 BROTHER Parkinson's disease 03 MOTHER Stroke 03 MOTHER 09 BROTHER (TIA) 09 SISTER (TIA) No Pertinent Family Hx Review of Systems Constitutional: see HPI Physical Exam Physical Exam Vital Signs Vital Signs - First Documented 07/22/19 10:45 Temp 36.6 Pulse 105 Resp 18 B/P (MAP) 116/87 (97) Pulse Ox 99 O2 Delivery Room Air Capillary Refill : Less Than 3 Seconds Height, Weight, BMI Height: 5'5.00" Weight: 154lbs. oz. 69.286158zw; 21.12 BMI Method:Stated General Appearance: Other (Did not see) Respiratory: Other (anterior chest tender to palpation) Gastrointestinal: Tenderness (mild, generalized) Results Results/Procedures Labs Laboratory Tests 07/22/19 11:25 Patient resulted labs reviewed. Short Stay Diagnosis Discharge Diagnosis-Short Stay Admission Diagnosis Chest Pain Final Discharge Diagnosis Chest Pain Conclusion Plan Chest Pain Pt was admitted due to chest pain but prior to completing work up for this (stress test) she elected to sign out AMA I did not see patient, this is for documentation purposes only Diagnosis/Problems Diagnosis/Problems (1) Chest pain Status: Acute Qualifiers: Qualified Codes: R07.9 - Chest pain, unspecified Clinical Quality Measures AMI/AHF: ASA po Prior to arrival: No DVT/VTE Risk/Contraindication: Risk Factor Score Per Nursin RFS Level Per Nursing on Admit: 2=Moderate RADHA PENA MD Jul 23, 2019 09:14
== END 2019-07-23 07:24 | disposition left against medical advice (07) ==
LOC: EDUNIT# 10:42 → ER 10:44 → 4TH 14:33
PROVIDERS: ADMIT Family Medicine; ATTEND Family Medicine
DX: R07.9 Chest pain, unspecified (principal); J44.9 Chronic obstructive pulmonary disease, unspecified; K21.9 Gastro-esophageal reflux disease without esophagitis; M19.90 Unspecified osteoarthritis, unspecified site; G47.9 Sleep disorder, unspecified; F32.9 Major depressive disorder, single episode, unspecified; F41.9 Anxiety disorder, unspecified; F17.210 Nicotine dependence, cigarettes, uncomplicated; F15.20 Other stimulant dependence, uncomplicated; Z91.048 Other nonmedicinal substance allergy status; Z79.82 Long term (current) use of aspirin; Z79.891 Long term (current) use of opiate analgesic; Z79.899 Other long term (current) drug therapy; Z90.89 Acquired absence of other organs; Z91.041 Radiographic dye allergy status; Z88.8 Allergy status to other drugs, medicaments and biological substances; Z90.710 Acquired absence of both cervix and uterus; W19.XXXA Unspecified fall, initial encounter; Z82.49 Family history of ischemic heart disease and other diseases of the circulatory system; Z82.3 Family history of stroke
CPT/HCPCS: 36415; 71045; 71250; 74176; 80053; 80306; 80320; 83735; 83874; 84484; 85025; 85379; 85610; 85730; 93005; 93041; 96361; 96372; 96374; G0378

== ENCOUNTER 2019-08-03 15:21 | Emergency (ER) | payer MEDICARE, MEDICAID ==
[~2019-08-03] VITALS: Ht 172.7 cm; Wt 61.0 kg
[~2019-08-03 15:21] MED LIST changes: +OMEP-280; -OMEP20CA13
[2019-08-03] MEDS ORDERED: ASPIRIN 81 MG CHEW (CHILDREN'S ASA) PO ONE (17:00)
[2019-08-03 17:10] LABS: BASOPHILS # (AUTO) 0.1 10^3/uL (0.0-0.1); BASOPHILS % (AUTO) 1 % (0-10); EOSINOPHILS # (AUTO) 0.4 10^3/uL (0.0-0.3); EOSINOPHILS % (AUTO) 6 % (0-10); HEMATOCRIT 38 % (35-52); HEMOGLOBIN 13.4 G/DL (11.5-16.0); LYMPHOCYTES # (AUTO) 2.3 X 10^3 (1.0-4.0); LYMPHOCYTES % (AUTO) 35 % (12-44); MEAN CORPUSCULAR HEMOGLOBIN 32 PG (25-34); MEAN CORPUSCULAR HGB CONC 35 G/DL (32-36); MEAN CORPUSCULAR VOLUME 92 FL (80-99); MONOCYTES # (AUTO) 0.4 X 10^3 (0.0-1.0); MONOCYTES % (AUTO) 6 % (0-12); NEUTROPHILS # (AUTO) 3.4 X 10^3 (1.8-7.8); NEUTROPHILS % (AUTO) 52 % (42-75); PLATELET COUNT 250 10^3/uL (130-400); WHITE BLOOD COUNT 6.4 10^3/uL (4.3-11.0)
--- NOTE | 2019-08-03 17:14 | ED Cardiac General ---
History of Present Illness General Chief Complaint: Chest Pain Stated Complaint: CP W/ MOVEMENT Nursing Triage Note: Pt ambulatory to triage with c/o ongoing chest pain that has persisted for at least a week. Pt reports being seen in the ED last week and was admitted for suspected blood clot in the lungs and kidney failure. Pt reports leaving AMA and symptoms have worsened since last week. Pt reports pain is worse with movement and radiates to the back. Source: patient Exam Limitations: no limitations History of Present Illness Date Seen by Provider: Aug 03, 2019 Time Seen by Provider: 17:12 Initial Comments To ER with reports of ongoing chest pain for about a week ever since she fell landing on the front of her chest. She was seen here last week, left AGAINST MEDICAL ADVICE shortly into the admission before any additional workup other than the emergency room workup could be completed. This central chest pain just to the left of the sternum is nontender to palpation but is significantly worsened by movement. Timing/Duration: 5-6 days Severity: moderate Location: central Activities at Onset: none NTG SL STOP ATTACHER: No ASA po STOP ATTACHER: No Allergies and Home Medications Allergies Coded Allergies: propoxyphene (Unverified Allergy, Mild, 11/17/09) adhesive (Unverified Allergy, Unknown, RASH, 03/28/17) Iodinated Contrast Media (Verified Adverse Reaction, Intermediate, NAUSEA, 05/16/13) SEVERE VOMITTING Home Medications Aspirin 325 Mg Tabec, 325 MG PO DAILY, (Reported) Ipratropium Limestone 12.9 Gm Aers, 2 PUFF IH Q6H Prescribed by: KIRILL MADDEN on 02/17/19 1334 Patient Home Medication List Home Medication List Reviewed: Yes Review of Systems Review of Systems Constitutional: see HPI EENTM: No Symptoms Reported Respiratory: No Symptoms Reported Cardiovascular: See HPI, Chest Pain Gastrointestinal: See HPI Genitourinary: No Symptoms Reported Musculoskeletal: no symptoms reported Skin: no symptoms reported Psychiatric/Neurological: No Symptoms Reported Endocrine: No Symptoms Reported Hematologic/Lymphatic: No Symptoms Reported Past Lptwrou-Kcmcww-Wylbjb Hx Patient Social History Alcohol Use: Past History Recreational Drug Use: No Smoking Status: Current Everyday Smoker Type Used: Cigarettes 2nd Hand Smoke Exposure: Yes Recent Foreign Travel: No Contact w/Someone Who Travel: No Recent Infectious Disease Expo: No Recent Hopitalizations: Yes (08/10 left ama) Immunizations Up To Date Tetanus Booster (TDap): Unknown Date of Pneumonia Vaccine: Jul 22, 2008 Seasonal Allergies Seasonal Allergies: Yes ("SINUS PROBLEMS") Past Medical History Surgeries: Yes (HYST,APPY,SHWETHA, COCCYX BONE, R HIP) Appendectomy, Gallbladder, 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, Orthopedic Respiratory: Yes COPD Cardiac: Yes (WPW, tachycardia) Neurological: No Reproductive Disorders: No 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 Sexually Transmitted Disease: No HIV/AIDS: No Kidney Infection, Kidney Stones Gastrointestinal: Yes Gastroesophageal Reflux, Ulcer Musculoskeletal: Yes Arthritis Endocrine: No Cataract Loss of Vision: Denies Hearing Impairment: Denies Cancer: No Psychosocial: No Sleep Difficulties, Anxiety, Depression Integumentary: No (BLISTERS FROM RECENT TAPE) Blood Disorders: No Adverse Reaction/Blood Tranf: No Family Medical History Cancer 03 MOTHER (SPINAL AND KIDNEY) Cataract 03 MOTHER Congestive heart failure 03 FATHER Family history: Gastrointestinal disease 09 BROTHER Family history: Hypertension 03 FATHER 03 MOTHER 09 BROTHER Myocardial infarction 03 FATHER 09 BROTHER Parkinson's disease 03 MOTHER Stroke 03 MOTHER 09 BROTHER (TIA) 09 SISTER (TIA) No Pertinent Family Hx Physical Exam Vital Signs Vital Signs - First Documented 08/03/19 15:43 Temp 36.8 Pulse 80 Resp 15 B/P (MAP) 151/88 (109) Pulse Ox 98 O2 Delivery Room Air Capillary Refill : Less Than 3 Seconds Height, Weight, BMI Height: 5'5.00" Weight: 154lbs. oz. 69.692760qr; 20.00 BMI Method:Stated General Appearance: No Apparent Distress, WD/WN, Chronically ill, Thin, Other (appears much older than stated age) HEENT: PERRL/EOMI, TMs Normal Neck: Full Range of Motion, Normal Inspection Respiratory: Chest Non Tender, Lungs Clear, Normal Breath Sounds, No Accessory Muscle Use, No Respiratory Distress Cardiovascular: Regular Rate, Rhythm, Normal Peripheral Pulses Gastrointestinal: Non Tender, Soft Extremity: Normal Capillary Refill, Normal Inspection Neurologic/Psychiatric: Alert, Oriented x3 Skin: Normal Color, Warm/Dry Progress/Results/Core Measures Results/Orders Lab Results Laboratory Tests Test 08/03/19 17:02 08/03/19 17:21 Range/Units White Blood Count 6.4 4.3-11.0 10^3/uL Red Blood Count 4.18 L 4.35-5.85 10^6/uL Hemoglobin 13.4 11.5-16.0 G/DL Hematocrit 38 35-52 % Mean Corpuscular Volume 92 80-99 FL Mean Corpuscular Hemoglobin 32 25-34 PG Mean Corpuscular Hemoglobin Concent 35 32-36 G/DL Red Cell Distribution Width 13.0 10.0-14.5 % Platelet Count 250 130-400 10^3/uL Mean Platelet Volume 10.0 7.4-10.4 FL Neutrophils (%) (Auto) 52 42-75 % Lymphocytes (%) (Auto) 35 12-44 % Monocytes (%) (Auto) 6 0-12 % Eosinophils (%) (Auto) 6 0-10 % Basophils (%) (Auto) 1 0-10 % Neutrophils # (Auto) 3.4 1.8-7.8 X 10^3 Lymphocytes # (Auto) 2.3 1.0-4.0 X 10^3 Monocytes # (Auto) 0.4 0.0-1.0 X 10^3 Eosinophils # (Auto) 0.4 H 0.0-0.3 10^3/uL Basophils # (Auto) 0.1 0.0-0.1 10^3/uL Sodium Level 138 135-145 MMOL/L Potassium Level 3.9 3.6-5.0 MMOL/L Chloride Level 106 98-107 MMOL/L Carbon Dioxide Level 20 L 21-32 MMOL/L Anion Gap 12 5-14 MMOL/L Blood Urea Nitrogen 6 L 7-18 MG/DL Creatinine 0.72 0.60-1.30 MG/DL Estimat Glomerular Filtration Rate > 60 BUN/Creatinine Ratio 8 Glucose Level 96 70-105 MG/DL Calcium Level 8.7 8.5-10.1 MG/DL Corrected Calcium 8.7 8.5-10.1 MG/DL Magnesium Level 1.7 1.6-2.4 MG/DL Total Bilirubin 0.4 0.1-1.0 MG/DL Aspartate Amino Transf (AST/SGOT) 28 5-34 U/L Alanine Aminotransferase (ALT/SGPT) 12 0-55 U/L Alkaline Phosphatase 126 40-136 U/L Myoglobin 24.8 10.0-92.0 NG/ML Troponin I < 0.028 <0.028 NG/ML B-Type Natriuretic Peptide 46.8 <100.0 PG/ML Total Protein 7.0 6.4-8.2 GM/DL Albumin 4.0 3.2-4.5 GM/DL Prothrombin Time 13.3 12.2-14.7 SEC INR Comment 1.0 0.8-1.4 Activated Partial Thromboplast Time 32 24-35 SEC D-Dimer 0.80 H 0.00-0.49 UG/ML My Orders Orders - KOREY ZARCO APRN Cbc With Automated Diff (08/03/19 16:51) Magnesium (08/03/19 16:51) Chest 1 View, Ap/Pa Only (08/03/19 16:51) Ekg Tracing (08/03/19 16:51) Comprehensive Metabolic Panel (08/03/19 16:51) Myoglobin Serum (08/03/19 16:51) Protime With Inr (08/03/19 16:51) Partial Thromboplastin Time (08/03/19 16:51) O2 (08/03/19 16:51) Monitor-Rhythm Ecg Trace Only (08/03/19 16:51) Lipid Panel (08/04/19 06:00) Ed Iv/Invasive Line Start (08/03/19 16:51) BNP (08/03/19 16:51) Fibrin Degradation Products (08/03/19 16:51) Troponin I (08/03/19 16:51) Aspirin Chewable Tablet (Baby Aspirin Ch (08/03/19 17:00) Drug Screen Stat (Urine) (08/03/19 16:51) Ketorolac Injection (Toradol Injection) (08/03/19 17:15) Ct Angio Chest W (08/03/19 17:45) Iohexol Injection (Omnipaque 350 Mg/Ml 1 (08/03/19 18:00) Received Contrast (Hold Metformin- Contr (08/03/19 18:00) Sodium Chloride Flush (Catheter Flush Sy (08/03/19 18:00) Ns (Ivpb) (Sodium Chloride 0.9% Ivpb Bag (08/03/19 18:00) Medications Given in ED Current Medications Medications Dose Ordered Sig/Justino Route Start Time Stop Time Status Last Admin Dose Admin Aspirin 324 mg ONCE ONCE PO 08/03/19 17:00 08/03/19 17:01 DC 08/03/19 17:31 324 MG Iohexol 100 ml ONCE ONCE IV 1/13/20 18:00 08/03/19 18:01 DC 08/03/19 18:52 75 ML Ketorolac Tromethamine 15 mg ONCE ONCE IVP 08/03/19 17:15 08/03/19 17:16 DC 08/03/19 17:31 15 MG Sodium Chloride 10 ml NEEDED PRN IV 08/03/19 18:00 08/03/19 18:52 10 ML Sodium Chloride 100 ml ONCE ONCE IV 08/03/19 18:00 08/03/19 18:01 DC 08/03/19 18:52 80 ML Vital Signs/I&O 08/03/19 08/03/19 15:43 17:05 Temp 36.8 Pulse 80 Resp 15 B/P (MAP) 151/88 (109) Pulse Ox 98 O2 Delivery Room Air Room Air Blood Pressure Mean: 109 Departure Impression Primary Impression: Falls Additional Impression: Chest wall pain Disposition: 01 HOME, SELF-CARE Condition: Improved Departure-Patient Inst. Decision time for Depature: 19:07 Referrals: NO,LOCAL PHYSICIAN (PCP/Family) Primary Care Physician Patient Instructions: Chest Pain (DC) Add. Discharge Instructions: 1. Return to ER for any concerns 2. Follow-up with your doctor next week 3. Tylenol and ibuprofen for pain control. All discharge instructions reviewed with patient and/or family. Voiced francisca guthrie. KOREY ZARCO APRN Aug 03, 2019 17:14
[2019-08-03] MEDS ORDERED: KETOROLAC 30 MG/ML VIAL IVP ONE (17:15)
[2019-08-03 17:29] LABS: ALANINE AMINOTRANSFERASE 12 U/L (0-55); ALKALINE PHOSPHATASE 126 U/L (40-136); BILIRUBIN,TOTAL 0.4 MG/DL (0.1-1.0); BUN/CREATININE RATIO 8; CALCIUM 8.7 MG/DL (8.5-10.1); CARBON DIOXIDE 20 MMOL/L (21-32); CHLORIDE 106 MMOL/L (98-107); CREATININE SERUM 0.72 MG/DL (0.60-1.30); GFR ESTIMATED > 60; GLUCOSE 96 MG/DL (70-105); MAGNESIUM 1.7 MG/DL (1.6-2.4); POTASSIUM 3.9 MMOL/L (3.6-5.0); SODIUM 138 MMOL/L (135-145)
[2019-08-03 17:40] LABS: PROTHROMBIN TIME PATIENT 13.3 SEC (12.2-14.7)
--- NOTE | 2019-08-03 17:41 | Diagnostic Imaging Report ---
INDICATION: Chest pain. Frontal chest obtained at 05:23 p.m. and compared to 07/22/2019. Heart and mediastinal silhouette are normal in appearance. There are chronic-appearing increased interstitial markings. There are COPD changes with hyperinflation. There is no pneumothorax or pleural fluid. IMPRESSION: COPD changes and chronic-appearing increased interstitial markings. No acute consolidation or pleural fluid. Dictated by: Dictated on workstation # [id number]
[2019-08-03] MEDS ORDERED: CATHETER FLUSH 10 ML SYR IV PRN (18:00)
[2019-08-03] MEDS ORDERED: HOLD METFORMIN - RECEIVED CONTRAST 20 ML VIAL IV SCH (18:00)
[2019-08-03] MEDS ORDERED: IOHEXOL 350 MG/ML 100 ML (OMNIPAQUE 350) VIAL IV ONE (18:00)
[2019-08-03] MEDS ORDERED: NS 100 ML (IVPB) BAG IV ONE (18:00)
--- NOTE | 2019-08-03 18:58 | Diagnostic Imaging Report ---
INDICATION: Chest pain. TECHNIQUE: Multiple contiguous axial images were obtained through the chest after uneventful bolus administration of intravenous contrast. 3D reconstructed CTA MIP acquisitions were also performed. Auto Exposure Controls were utilized during the CT exam to meet ALARA standards for radiation dose reduction. COMPARISON: 07/22/2019. The pulmonary parenchymal vessels are well-opacified with no CT evidence of pulmonary emboli. There is no pleural or pericardial fluid. There are no enlarged mediastinal or hilar nodes. There is no enlarged axillary node or chest wall lesion. Lung parenchymal windows demonstrate some dependent atelectatic changes in the lung bases but no overt consolidation or focal mass lesion. Visualized portions of the upper abdomen are unremarkable. IMPRESSION: Negative CTA chest. Dictated by: Dictated on workstation # [id number]
[2019-08-03 19:24] VITALS: BP 152/81
== END 2019-08-03 19:24 | disposition home or self-care (01) ==
LOC: EDUNIT# 15:21 → ER 15:23
DX: R07.89 Other chest pain (principal); J44.9 Chronic obstructive pulmonary disease, unspecified; F41.9 Anxiety disorder, unspecified; F32.9 Major depressive disorder, single episode, unspecified; K21.9 Gastro-esophageal reflux disease without esophagitis; F17.210 Nicotine dependence, cigarettes, uncomplicated; Z87.442 Personal history of urinary calculi; Z90.710 Acquired absence of both cervix and uterus; Z91.041 Radiographic dye allergy status; Z90.49 Acquired absence of other specified parts of digestive tract; Z80.8 Family history of malignant neoplasm of other organs or systems; Z88.8 Allergy status to other drugs, medicaments and biological substances; Z79.82 Long term (current) use of aspirin; Z80.51 Family history of malignant neoplasm of kidney; Z82.49 Family history of ischemic heart disease and other diseases of the circulatory system; W19.XXXA Unspecified fall, initial encounter
CPT/HCPCS: 36415; 71045; 71275; 80053; 83735; 83874; 83880; 84484; 85025; 85379; 85610; 85730; 93005; 93041; 96374

== ENCOUNTER 2020-03-10 11:33 | Emergency (ER) | payer MEDICARE, MEDICAID ==
[~2020-03-10] VITALS: Ht 172.7 cm; Wt 70.3 kg
[~2020-03-10 11:33] MED LIST changes: +ACHYD1T; -HYDR-3820; -OMEP-280; +OMEP20CA18
[2020-03-10] MEDS: ASPIRIN 81 MG CHEW (CHILDREN'S ASA) PO ONE (11:55)
--- NOTE | 2020-03-10 11:56 | ED Cardiac General ---
History of Present Illness General Chief Complaint: Chest Pain Stated Complaint: PREVIOUS CHEST PAIN Nursing Triage Note: PT AMB TO RM 8 AFTER BEING SENT OUT BY [facility] FOR INTERMITTENT CP. PT STATES STARTED 2-3 DAYS AGO. STATES FEELS IT IS MORE IN HER STOMACH AND HAS HAD BURNING. STATES HAS TROUBLE WITH FOOD GOING DOWN. PT IS NOT CURRENTLY HAVING PAIN AT TIME OF TRIAGE. Source: patient Exam Limitations: no limitations History of Present Illness Date Seen by Provider: Mar 10, 2020 Time Seen by Provider: 11:46 Initial Comments 59-year-old female who presents to the emergency room with complaints of intermittent chest pain for the past 2-3 weeks but for the past 2-3 days reports as being worse. She was sent out by [facility] for evaluation. She reports that it is more down in her stomach that radiates up into her chest and has had heartburn with eating and food going down. She is symptom-free at this time. Timing/Duration: 2-3 days Location: epigastric NTG SL MANAGER IN HOME: No ASA po MANAGER IN HOME: No Associated Systoms: Chest Pain Allergies and Home Medications Allergies Coded Allergies: propoxyphene (Unverified Allergy, Mild, 11/17/09) adhesive (Unverified Allergy, Unknown, RASH, 03/28/17) Iodinated Contrast Media (Verified Adverse Reaction, Intermediate, NAUSEA, 05/16/13) SEVERE VOMITTING Home Medications Aspirin 325 Mg Tabec, 325 MG PO DAILY, (Reported) Ipratropium [place] 12.9 Gm Aers, 2 PUFF IH Q6H Prescribed by: KIRILL MADDEN on 02/17/19 1334 Patient Home Medication List Home Medication List Reviewed: Yes Review of Systems Review of Systems Constitutional: see HPI; No chills, No fever Cardiovascular: See HPI, Chest Pain Gastrointestinal: See HPI, Abdominal Pain All Other Systems Reviewed Negative Unless Noted: Yes Past Fzvhskf-Jhxmcl-Jzmqjb Hx Past Med/Social Hx: Reviewed Nursing Past Med/Soc Hx Patient Social History Alcohol Use: Denies Use Recreational Drug Use: No Type Used: Cigarettes 2nd Hand Smoke Exposure: Yes Recent Foreign Travel: No Contact w/Someone Who Travel: No Recent Infectious Disease Expo: No Recent Hopitalizations: Yes (08/10 left ama) Immunizations Up To Date Tetanus Booster (TDap): Unknown Date of Pneumonia Vaccine: Jul 22, 2008 Seasonal Allergies Seasonal Allergies: Yes ("SINUS PROBLEMS") Past Medical History Surgeries: Yes (HYST,APPY,SHWETHA, COCCYX BONE, R HIP) Appendectomy, Gallbladder, 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, Orthopedic Respiratory: Yes COPD Cardiac: Yes (WPW, tachycardia) Neurological: No Reproductive Disorders: No 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 Sexually Transmitted Disease: No HIV/AIDS: No Kidney Infection, Kidney Stones Gastrointestinal: Yes Gastroesophageal Reflux, Ulcer Musculoskeletal: Yes Arthritis Endocrine: No Cataract Loss of Vision: Denies Hearing Impairment: Denies Cancer: No Psychosocial: No Sleep Difficulties, Anxiety, Depression Integumentary: No (BLISTERS FROM RECENT TAPE) Blood Disorders: No Adverse Reaction/Blood Tranf: No Family Medical History Reviewed Nursing Family Hx Cancer 03 MOTHER (SPINAL AND KIDNEY) Cataract 03 MOTHER Congestive heart failure 03 FATHER Family history: Gastrointestinal disease 09 BROTHER Family history: Hypertension 03 FATHER 03 MOTHER 09 BROTHER Myocardial infarction 03 FATHER 09 BROTHER Parkinson's disease 03 MOTHER Stroke 03 MOTHER 09 BROTHER (TIA) 09 SISTER (TIA) No Pertinent Family Hx Physical Exam Vital Signs Vital Signs - First Documented 03/10/20 11:41 Temp 36.8 Pulse 78 Resp 20 B/P (MAP) 122/74 (90) Pulse Ox 98 O2 Delivery Room Air Capillary Refill : Less Than 3 Seconds Height, Weight, BMI Height: 5'5.00" Weight: 154lbs. oz. 69.323754ah; 23.00 BMI Method:Stated General Appearance: No Apparent Distress, WD/WN Respiratory: Chest Non Tender, Lungs Clear, Normal Breath Sounds, No Accessory Muscle Use, No Respiratory Distress Cardiovascular: Regular Rate, Rhythm, No Edema, No Gallop, No JVD, No Murmur, Normal Peripheral Pulses Gastrointestinal: Normal Bowel Sounds, No Organomegaly, No Pulsatile Mass, Soft, Tenderness (epigastric and right upper quadrant tenderness) Neurologic/Psychiatric: Alert, Oriented x3, Normal Mood/Affect Skin: Normal Color, Warm/Dry Progress/Results/Core Measures Results/Orders Lab Results Laboratory Tests Test 03/10/20 12:04 Range/Units White Blood Count 7.4 4.3-11.0 10^3/uL Red Blood Count 3.69 L 4.35-5.85 10^6/uL Hemoglobin 12.0 11.5-16.0 G/DL Hematocrit 35 35-52 % Mean Corpuscular Volume 94 80-99 FL Mean Corpuscular Hemoglobin 33 25-34 PG Mean Corpuscular Hemoglobin Concent 35 32-36 G/DL Red Cell Distribution Width 12.7 10.0-14.5 % Platelet Count 224 130-400 10^3/uL Mean Platelet Volume 9.4 7.4-10.4 FL Neutrophils (%) (Auto) 49 42-75 % Lymphocytes (%) (Auto) 41 12-44 % Monocytes (%) (Auto) 6 0-12 % Eosinophils (%) (Auto) 4 0-10 % Basophils (%) (Auto) 1 0-10 % Neutrophils # (Auto) 3.6 1.8-7.8 X 10^3 Lymphocytes # (Auto) 3.0 1.0-4.0 X 10^3 Monocytes # (Auto) 0.4 0.0-1.0 X 10^3 Eosinophils # (Auto) 0.3 0.0-0.3 10^3/uL Basophils # (Auto) 0.1 0.0-0.1 10^3/uL Prothrombin Time 12.6 12.2-14.7 SEC INR Comment 0.9 0.8-1.4 Activated Partial Thromboplast Time 29 24-35 SEC Sodium Level 137 135-145 MMOL/L Potassium Level 3.6 3.6-5.0 MMOL/L Chloride Level 110 H 98-107 MMOL/L Carbon Dioxide Level 21 21-32 MMOL/L Anion Gap 6 5-14 MMOL/L Blood Urea Nitrogen 14 7-18 MG/DL Creatinine 0.73 0.60-1.30 MG/DL Estimat Glomerular Filtration Rate > 60 BUN/Creatinine Ratio 19 Glucose Level 95 70-105 MG/DL Calcium Level 8.4 L 8.5-10.1 MG/DL Corrected Calcium 8.6 8.5-10.1 MG/DL Magnesium Level 1.6 1.6-2.4 MG/DL Total Bilirubin 0.1 0.1-1.0 MG/DL Aspartate Amino Transf (AST/SGOT) 24 5-34 U/L Alanine Aminotransferase (ALT/SGPT) 14 0-55 U/L Alkaline Phosphatase 112 40-136 U/L Myoglobin 31.8 10.0-92.0 NG/ML Troponin I < 0.028 <0.028 NG/ML Total Protein 6.5 6.4-8.2 GM/DL Albumin 3.7 3.2-4.5 GM/DL Amylase Level 53 25-125 U/L My Orders Orders - PEPE GUERRA Cbc With Automated Diff (03/10/20 11:48) Magnesium (03/10/20 11:48) Chest 1 View, Ap/Pa Only (03/10/20 11:48) Ekg Tracing (03/10/20 11:48) Comprehensive Metabolic Panel (03/10/20 11:48) Myoglobin Serum (03/10/20 11:48) Protime With Inr (03/10/20 11:48) Partial Thromboplastin Time (03/10/20 11:48) O2 (03/10/20 11:48) Monitor-Rhythm Ecg Trace Only (03/10/20 11:48) Lipid Panel (03/11/20 06:00) Ed Iv/Invasive Line Start (03/10/20 11:48) Amylase (03/10/20 11:48) Troponin I (03/10/20 11:48) Aspirin Chewable Tablet (Baby Aspirin Ch (03/10/20 12:00) Lidocaine 2% Viscous 15 Ml (Xylocaine Vi (03/10/20 13:00) Antacid Suspension (Mylanta Suspension (03/10/20 13:00) Medications Given in ED Current Medications Medications Dose Ordered Sig/Justino Route Start Time Stop Time Status Last Admin Dose Admin Al Hydrox/Mg Hydrox/Simethicone 30 ml ONCE ONCE PO 03/10/20 13:00 03/10/20 13:01 DC 03/10/20 13:13 30 ML Aspirin 324 mg ONCE ONCE PO 03/10/20 12:00 03/10/20 12:01 DC 03/10/20 11:55 324 MG Lidocaine HCl 15 ml ONCE ONCE PO 03/10/20 13:00 03/10/20 13:01 DC 03/10/20 13:13 15 ML Vital Signs/I&O 03/10/20 11:41 Temp 36.8 Pulse 78 Resp 20 B/P (MAP) 122/74 (90) Pulse Ox 98 O2 Delivery Room Air Blood Pressure Mean: 90 Departure Impression Primary Impression: Heartburn Disposition: 01 HOME, SELF-CARE Condition: Stable/Unchanged Departure-Patient Inst. Decision time for Depature: 14:26 Referrals: NO,LOCAL PHYSICIAN (PCP/Family) Primary Care Physician Patient Instructions: Chest Pain That Is Not Caused by the Heart (DC) Add. Discharge Instructions: You may use [id number] Pepcid and Tums as needed for heartburn. Follow-up with your primary care provider within 1 week for recheck. You may need an evaluation to rule out a ulcer. Return back to the emergency room for worsening symptoms, shortness of breath, chest pain, or any other concerns as needed. All discharge instructions reviewed with patient and/or family. Voiced understanding. PEPE GUERRA Mar 10, 2020 11:56
[2020-03-10 12:13] LABS: BASOPHILS # (AUTO) 0.1 10^3/uL (0.0-0.1); BASOPHILS % (AUTO) 1 % (0-10); EOSINOPHILS # (AUTO) 0.3 10^3/uL (0.0-0.3); EOSINOPHILS % (AUTO) 4 % (0-10); HEMATOCRIT 35 % (35-52); LYMPHOCYTES % (AUTO) 41 % (12-44); MEAN CORPUSCULAR HEMOGLOBIN 33 PG (25-34); MEAN CORPUSCULAR HGB CONC 35 G/DL (32-36); MEAN CORPUSCULAR VOLUME 94 FL (80-99); MEAN PLATELET VOLUME 9.4 FL (7.4-10.4); MONOCYTES # (AUTO) 0.4 X 10^3 (0.0-1.0); MONOCYTES % (AUTO) 6 % (0-12); NEUTROPHILS # (AUTO) 3.6 X 10^3 (1.8-7.8); NEUTROPHILS % (AUTO) 49 % (42-75); PLATELET COUNT 224 10^3/uL (130-400); RED CELL DISTRIBUTION WIDTH 12.7 % (10.0-14.5); WHITE BLOOD COUNT 7.4 10^3/uL (4.3-11.0)
[2020-03-10 12:25] LABS: INR 0.9 (0.8-1.4); PROTHROMBIN TIME PATIENT 12.6 SEC (12.2-14.7)
[2020-03-10 12:41] LABS: ALANINE AMINOTRANSFERASE 14 U/L (0-55); ALBUMIN 3.7 GM/DL (3.2-4.5); ALKALINE PHOSPHATASE 112 U/L (40-136); AMYLASE 53 U/L (25-125); BILIRUBIN,TOTAL 0.1 MG/DL (0.1-1.0); BUN/CREATININE RATIO 19; CALCIUM 8.4 MG/DL (8.5-10.1); CARBON DIOXIDE 21 MMOL/L (21-32); CHLORIDE 110 MMOL/L (98-107); CREATININE SERUM 0.73 MG/DL (0.60-1.30); GFR ESTIMATED > 60; GLUCOSE 95 MG/DL (70-105); MAGNESIUM 1.6 MG/DL (1.6-2.4); POTASSIUM 3.6 MMOL/L (3.6-5.0); SODIUM 137 MMOL/L (135-145); TOTAL PROTEIN 6.5 GM/DL (6.4-8.2)
--- NOTE | 2020-03-10 13:05 | Diagnostic Imaging Report ---
INDICATION: Chest pain. EXAMINATION: Frontal chest obtained at 12:46 p.m. and is compared to 08/03/2019. FINDINGS: Heart and mediastinal silhouette are normal in appearance. There is mild hyperinflation. There is no pneumothorax or pleural fluid. There are mild chronic-appearing increased interstitial markings. IMPRESSION: No acute process in the chest and no significant change from 08/03/2019. Dictated by: Dictated on workstation # [id number]
[2020-03-10] MEDS: LIDOCAINE 2% VISCOUS 15 ML UDC PO ONE (13:13)
[2020-03-10] MEDS: ANTACID SUSP 30 ML UDC (MYLANTA) PO ONE (13:13)
[2020-03-10 14:30] VITALS: BP 118/79
== END 2020-03-10 14:30 | disposition home or self-care (01) ==
LOC: EDUNIT# 11:33 → ER 11:37
DX: R12 Heartburn (principal); J44.9 Chronic obstructive pulmonary disease, unspecified; Z91.040 Latex allergy status; Z88.8 Allergy status to other drugs, medicaments and biological substances; Z79.82 Long term (current) use of aspirin; Z82.49 Family history of ischemic heart disease and other diseases of the circulatory system
CPT/HCPCS: 36415; 71045; 80053; 82150; 83735; 83874; 84484; 85025; 85610; 85730; 93005; 93041

== ENCOUNTER 2021-05-01 10:29 | Emergency (ER) | payer MEDICARE, MEDICAID ==
[~2021-05-01] VITALS: Ht 170.1 cm; Wt 70.3 kg
[~2021-05-01 10:29] MED LIST changes: -LISI-552; +LISI20TA26
--- NOTE | 2021-05-01 10:50 | ED Lower Extremity ---
General Chief Complaint: Trauma-Non Activation Stated Complaint: FALL R HIP PAIN Nursing Triage Note: WALKING AND SLIPPED ON SOME WATER AND IT CAUSED HER TO FALL INJURING HER RIGHT HIP, ARRIVES BY EMS TO ROOM 7 Source: patient (EXTREMELY POOR AND DIFFICULT HISTORIAN) History of Present Illness Date Seen by Provider: May 01, 2021 Time Seen by Provider: 10:30 Initial Comments PT ARRIVES VIA EMS FROM A LOCAL [facility] PT WAS INSIDE THE [facility] AND ALLEGEDLY FELL--PT REPEATS "I DON'T KNOW WHAT HAPPENED" INCIDENT WAS NOT WITNESSED PT DENIES HITTING HER HEAD OR HAVING LOSS OF CONSCIOUSNESS C/O PAIN TO RIGHT GROIN AREA DENIES PARESTHESIAS OR MOTOR DEFICITS DENIES PAIN IN BACK PT STATES SHE HAS HAD PRIOR RIGHT AND LEFT HIP REPLACEMENTS FOR OSTEOARTHRITIS IN 2009, THEN HAD A REVISION OF RIGHT HIP IN 2012--ALL BY DR. SALDIVAR PT REFUSED PAIN MEDICATION BY EMS--STATES SHE HAS HISTORY OF ADDICTION TO PAIN MEDICATION PT IS SUPPOSED TO BE ON BLOOD PRESSURE MEDICATION BUT DOES NOT TAKE THEM, AND DOES NOT FOLLOW UP WITH ANYONE PT HAS NOT HAD COVID-19 VACCINE PCP: JHON "ONE TIME" AND DENIES SEEING ANY OTHER DOCTORS Allergies and Home Medications Allergies Coded Allergies: propoxyphene (Unverified Allergy, Mild, 11/17/09) adhesive (Unverified Allergy, Unknown, RASH, 03/28/17) Iodinated Contrast Media (Verified Adverse Reaction, Intermediate, NAUSEA, 05/16/13) SEVERE VOMITTING Patient Home Medication List Home Medication List Reviewed: Yes Alprazolam (Alprazolam) 1 Mg Tablet, (Reported) Entered as Reported by: DEAN REYES on 03/28/17 1614 Aspirin (Aspirin Ec 325 Mg) 325 Mg Tabec, 325 MG PO DAILY, (Reported) Entered as Reported by: GILDA GRARIDO on 06/03/13 0914 Citalopram Hydrobromide (Citalopram HBr) 10 Mg Tablet, (Reported) Entered as Reported by: DEAN REYES on 03/28/17 1614 Cyclobenzaprine HCl (Cyclobenzaprine HCl) 10 Mg Tablet, 10 MG PO Q8H PRN for SPASMS Prescribed by: DESTINEY YEH on 05/01/21 1150 Fluticasone/Salmeterol (Advair 500-50 Diskus) 1 Each Blst.w.dev, (Reported) Entered as Reported by: DEAN REYES on 03/28/171613 Ipratropium [place] (Atrovent Hfa) 12.9 Gm Aers, 2 PUFF IH Q6H Prescribed by: KIRILL MADDEN on 02/17/19 1334 Lisinopril (Lisinopril) 20 Mg Tablet, (Reported) Entered as Reported by: DEAN REYES on 03/28/17 161 Naproxen (Naproxen) 500 Mg Tablet.dr, 500 MG PO BID Prescribed by: DESTINEY YEH on 05/01/21 1150 Omeprazole (Omeprazole) 20 Mg Capsule., (Reported) Entered as Reported by: DEAN REYES on 03/28/171613 Ranitidine HCl (Ranitidine HCl) 150 Mg Tablet, (Reported) Entered as Reported by: DEAN REYES on 03/28/171613 Tiotropium [place] (Spiriva) 1 Inh Aerp, (Reported) Entered as Reported by: DEAN REYES on 03/28/171613 Review of Systems Constitutional: no symptoms reported Cardiovascular: no symptoms reported Gastrointestinal: no symptoms reported Genitourinary: no symptoms reported Musculoskeletal: see HPI Skin: no symptoms reported Psychiatric/Neurological: No Symptoms Reported Past [place]-Dqzcao-Qkspzl Hx Patient Social History Tobacco Use?: Yes (1 PPD) Tobacco type used: Cigarettes Smoking Status: Current Everyday Smoker (1 PPD) Substance use?: Yes Substance type: Methamphetamine, Opiates/Opioids Alcohol Use?: No (DENIES) Immunizations Up To Date Tetanus Booster (TDap): Unknown Seasonal Allergies Seasonal Allergies: Yes ("SINUS PROBLEMS") Past Medical History Surgeries: Yes (HYST,APPY,SHWETHA, COCCYX BONE, BILAT HIP REPL.; BOWEL SURGERY) Appendectomy, Bowel Surgery, Gallbladder, 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, Joint Replacement, Orthopedic Respiratory: Yes COPD Cardiac: Yes (WPW, tachycardia) Hypertension, Irregular Heartbeat Neurological: No Reproductive Disorders: No 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 Sexually Transmitted Disease: No HIV/AIDS: No Genitourinary: Yes Kidney Infection, Kidney Stones Gastrointestinal: Yes Gastroesophageal Reflux, Ulcer Musculoskeletal: Yes (BILAT HIP REPLACEMENTS) Arthritis Endocrine: No HEENT: Yes Cataract Loss of Vision: Denies Hearing Impairment: Denies Cancer: No Psychosocial: Yes (SUBSTANCE ABUSE) Sleep Difficulties, Anxiety, Depression Integumentary: No Blood Disorders: No Adverse Reaction/Blood Tranf: No Family Medical History Cancer 03 MOTHER (SPINAL AND KIDNEY) Cataract 03 MOTHER Congestive heart failure 03 FATHER Family history: Gastrointestinal disease 09 BROTHER Family history: Hypertension 03 FATHER 03 MOTHER 09 BROTHER Myocardial infarction 03 FATHER 09 BROTHER Parkinson's disease 03 MOTHER Stroke 03 MOTHER 09 BROTHER (TIA) 09 SISTER (TIA) No Pertinent Family Hx SOCIAL HISTORY: -SMOKES 1 PPD -ETOH--DENIES USE -DRUGS--HX OF OPIATE ABUSE, UDS + FOR METH 05/01/21 PAST SURGICAL HISTORY: -BILATERAL HIP REPLACEMENTS [place] OSTEOAR[place]RITIS [place] [address] SALDIVAR -RIGHT HIP REVIS[address] SALDIVAR -APPENDECTOMY -CHOLECYSTECTOMY -HYSTERECTOMY -BOWEL SURGERY, PER PT, UNKNOWN REASON -COLONOSCOPY 2008 LONG HISTORY OF NON-COMPLIANCE Physical Exam Vital Signs Vital Signs - First Documented 05/01/21 10:30 Temp 36.2 Pulse 115 Resp 24 B/P (MAP) 146/81 (102) Pulse Ox 97 O2 Delivery Room Air Capillary Refill : Less Than 3 Seconds Height, Weight, BMI Height: 5'5.00" Weight: 154lbs. oz. 69.539983qs; 24.00 BMI Method:Stated General Appearance: thin, other (ANXIOUS, CONSTANT MOVEMENTS OF ENTIRE BODY, SPEECH IS VERY RAPID AND ERRATIC, ANXIOUS, FILTHY. ) Neck: normal inspection Cardiovascular: normal peripheral pulses, regular rate, rhythm, no murmur Respiratory: normal breath sounds Gastrointestinal: non tender, soft Back: normal inspection, no CVA tenderness, no vertebral tenderness Hips: left hip normal inspection; right hip other (TENDERNESS TO RIGHT INGUINAL AREA. NO OBVIOUS DEFORMITY. NO EXTERNAL EVIDENCE OF TRAUMA. NO SHORTENING OR ROTATION. NO SWELLING. DISTAL MOTOR/SENSORY/VASCULAR INTACT. ) Legs: bilateral leg normal inspection Knees: bilateral knee normal inspection Ankles: bilateral ankle normal inspection Feet: bilateral foot normal inspection Neurologic/Tendon: normal sensation, normal motor functions, normal tendon functions Neurologic/Psychiatric: no motor/sensory deficits, alert, oriented x 3 Skin: normal color, warm/dry, tattoos/piercings (TATTOOS), other (NO EXTERNAL EVIDENCE OF TRAUMA ANYWHERE) Progress/Results/Core Measures Results/Orders Lab Results Laboratory Tests Test 05/01/21 11:20 Range/Units Urine Color YELLOW Urine Clarity CLEAR Urine pH 6.0 5-9 Urine Specific [place] >=1.030 1.016-1.022 Urine Protein 1+ H NEGATIVE Urine Glucose (UA) NEGATIVE NEGATIVE Urine Ketones NEGATIVE NEGATIVE Urine Nitrite NEGATIVE NEGATIVE Urine Bilirubin NEGATIVE NEGATIVE Urine Urobilinogen 1.0 < = 1.0 MG/DL Urine Leukocyte Esterase NEGATIVE NEGATIVE Urine RBC (Auto) NEGATIVE NEGATIVE Urine RBC NONE /HPF Urine WBC 0-2 /HPF Urine Squamous Epithelial Cells 10-25 H /HPF Urine Crystals NONE /LPF Urine Bacteria MODERATE H /HPF Urine Casts NONE /LPF Urine Mucus NEGATIVE /LPF Urine Yeast FEW H /HPF Urine Culture Indicated NO Urine Opiates Screen POSITIVE H NEGATIVE Urine Oxycodone Screen NEGATIVE NEGATIVE Urine Methadone Screen NEGATIVE NEGATIVE Urine Propoxyphene Screen NEGATIVE NEGATIVE Urine Barbiturates Screen NEGATIVE NEGATIVE Ur Tricyclic Antidepressants Screen NEGATIVE NEGATIVE Urine Phencyclidine Screen NEGATIVE NEGATIVE Urine Amphetamines Screen POSITIVE H NEGATIVE Urine Methamphetamines Screen POSITIVE H NEGATIVE Urine Benzodiazepines Screen POSITIVE H NEGATIVE Urine Cocaine Screen NEGATIVE NEGATIVE Urine Cannabinoids Screen NEGATIVE NEGATIVE My Orders Orders - DESTINEY YEH DO Ed Iv/Invasive Line Start (05/01/21 10:35) Monitor-Rhythm Ecg Trace Only (05/01/21 10:35) Femur, Right, 2 Views (05/01/21 10:35) Pelvis With Right Hip 2-3views (05/01/21 10:35) Drug Screen Stat (Urine) (05/01/21 10:35) Ua Culture If Indicated (05/01/21 10:35) Vital Signs/I&O 05/01/21 05/01/21 05/01/21 10:30 10:34 12:03 Temp 36.2 36.2 Pulse 115 115 102 Resp 24 24 20 B/P (MAP) 146/81 (102) 146/81 (102) 125/76 Pulse Ox 97 97 97 O2 Delivery Room Air Room Air Room Air Blood Pressure Mean: 102 Progress Progress Note : Progress Note PT REFUSES IV AND REFUSES ANY MEDICATIONS PT WALKS OUT OF ER WITHOUT DIFFICULTY Diagnostic Imaging Comments XRAYS--PER RADIOLOGIST REPORTS AT 1148 PELVIS AND RIGHT HIP- FINDINGS: AP view of the pelvis and two views of the right hip were obtained. There are postop changes of bilateral total hip arthroplasties. Alignment appears normal. No fractures are seen. Rami are intact. SI joints and symphysis are not widened. IMPRESSION: No acute abnormality is detected. RIGHT FEMUR-- 2 views of the right femur demonstrate postoperative changes of total hip arthroplasty. Prosthetic elements appear to be in good position. Femur is intact. No acute fracture is seen. IMPRESSION: No acute bony abnormality is detected. Reviewed: Reviewed by Me Departure Impression Primary Impression: Right groin pain Additional Impression: Illicit drug use Disposition: HOME, SELF-CARE Condition: Stable Departure-Patient Inst. Decision time for Depature: 11:49 Referrals: NO,LOCAL PHYSICIAN (PCP) Primary Care Physician [facility] Patient Instructions: Groin Strain ED, Polysubstance Use Disorder (DC) Add. Discharge Instructions: ALTERNATE ICE AND HEAT TO SORE AREA AT 20 MINUTE INTERVALS ACTIVITIES TOLERATED FOLLOW UP WITH [facility] IN 4-5 DAYS FOR FURTHER CARE All discharge instructions reviewed with patient and/or family. Voiced u nderstanding. Scripts Cyclobenzaprine HCl (Cyclobenzaprine HCl) 10 Mg Tablet 10 MG PO Q8H PRN for SPASMS, #15 TAB 0 Refills Prov: DESTINEY YEH DO 05/01/21 Naproxen (Naproxen) 500 Mg Tablet.dr 500 MG PO BID, #20 TAB Prov: DESTINEY YEH DO 05/01/21 DESTINEY YEH DO May 01, 2021 10:50
[2021-05-01 11:28] LABS: BILIRUBIN,URINE NEGATIVE (NEGATIVE); CLARITY,URINE CLEAR; COLOR,URINE YELLOW; GLUCOSE, URINE (UA) NEGATIVE (NEGATIVE); KETONES,URINE NEGATIVE (NEGATIVE); LEUKOCYTE ESTERASE ,URINE NEGATIVE (NEGATIVE); NITRITE,URINE NEGATIVE (NEGATIVE); PROTEIN,URINE 1+ (NEGATIVE)
--- NOTE | 2021-05-01 11:29 | Diagnostic Imaging Report ---
INDICATION: Fall and right hip pain. TIME OF EXAM: 11:02 AM 2 views of the right femur demonstrate postoperative changes of total hip arthroplasty. Prosthetic elements appear to be in good position. Femur is intact. No acute fracture is seen. IMPRESSION: No acute bony abnormality is detected. Dictated by: Dictated on workstation # [id number]
--- NOTE | 2021-05-01 11:34 | Diagnostic Imaging Report ---
INDICATION: Fall and hip pain. TIME OF EXAM: 11:00 a.m. FINDINGS: AP view of the pelvis and two views of the right hip were obtained. There are postop changes of bilateral total hip arthroplasties. Alignment appears normal. No fractures are seen. Rami are intact. SI joints and symphysis are not widened. IMPRESSION: No acute abnormality is detected. Dictated by: Dictated on workstation # [id number]
[2021-05-01 11:40] LABS: BACTERIA,URINE MODERATE /HPF; WBC,URINE 0-2 /HPF; YEAST,URINE FEW /HPF
[2021-05-01 11:45] LABS: AMPHETAMINE SCREEN, URINE POSITIVE (NEGATIVE); BARBITURATE SCREEN URINE NEGATIVE (NEGATIVE); BENZODIAZEPINES SCREEN URINE POSITIVE (NEGATIVE); CANNABINOID SCREEN, URINE NEGATIVE (NEGATIVE); COCAINE SCREEN URINE NEGATIVE (NEGATIVE); METHADONE STAT NEGATIVE (NEGATIVE); METHAMPHETAMINE SCREEN URINE S POSITIVE (NEGATIVE); OPIATE SCREEN URINE POSITIVE (NEGATIVE); OXYCODONE STAT NEGATIVE (NEGATIVE); PROPOXYPHENE STAT NEGATIVE (NEGATIVE); TRICYCLIC ANTIDEPRESSANTS SCRE NEGATIVE (NEGATIVE)
[2021-05-01] MEDS ORDERED: NAPR500T8 PO (11:50)
[2021-05-01] MEDS ORDERED: CYCL10TA9 PO (11:50)
[2021-05-01 12:03] VITALS: BP 125/76
== END 2021-05-01 12:03 | disposition home or self-care (01) ==
LOC: ER 10:29
DX: R10.31 Right lower quadrant pain (principal); F19.90 Other psychoactive substance use, unspecified, uncomplicated; J44.9 Chronic obstructive pulmonary disease, unspecified; I10 Essential (primary) hypertension; F41.9 Anxiety disorder, unspecified; K21.9 Gastro-esophageal reflux disease without esophagitis; F32.9 Major depressive disorder, single episode, unspecified; F17.210 Nicotine dependence, cigarettes, uncomplicated; Z79.82 Long term (current) use of aspirin; Z79.899 Other long term (current) drug therapy
CPT/HCPCS: 73552; 80306; 81000; 93041